=== PATIENT | female | born 1990 | race African-American/Black ===

== ENCOUNTER 2025-02-01 00:44 | Emergency (ER) | payer MEDICAID, SELFPAY ==
[2025-02-01] VITALS (11 sets, daily range): BP systolic 108–123; BP diastolic 57–83; PULSE 73–93; RESP 16; TEMP 36.3; O2SAT 98–100
--- NOTE | ~2025-02-01 | CT_ITS ---
CT of the Abdomen and Pelvis: Indication: Abdominal pain Technique: 2.5 mm axial scans were obtained through the abdomen and pelvis following intravenous adm inistration of 100 cc of Omnipaque 350. Dose reduction technique was used on this scan by utilizing a utomated exposure control and iterative reconstruction technique. The dose-length product (DLP) was 1 89.75 mGy-cm. Findings: Scans through the lung bases are unremarkable. The liver, pancreas, adrenals and kidneys are within normal limits. Cholecystectomy clips are present . Spleen is very small and somewhat hyperdense, suggestive of progressing autoinfarction. No evidence of aortic aneurysm. No lymphadenopathy. No bowel obstruction or bowel wall thickening. There is no evidence to suggest acute appendicitis. Images through the pelvis were performed. Urinary bladder unremarkable. No pelvic mass seen. No ascit es. 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 Correla te clinically. No acute abnormality evident. Reviewed, dictated and finalized at location . 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 Correlate clinically. No acute abnormality evident.
--- OUTSIDE RECORDS SUMMARY | 2025-02-01 00:47 | XMS_ITS | Clinical Summary ---
Author Organization [facility] Address [address] [place] [address] Care Team Providers Care Ocean Biologist Name Role Phone Found, No Pcp MD Primary Care Provider Unavailab le Source Comments You are receiving this document as you are listed as the primary care provider,follow-up provider, or the patient has been referred to you for consultation.This is in compliance with the Medicare andMedicaid EHR Incentive Program,which states Providers who transition their patient to another setting of careor provider of care or refers their patient to another provider of care shouldprovide summary care record for each transition of care or referral. [facility] Allergies Active Allergy Reactions Criticality Noted Date Comments Blood-Group Specific Substance Other, see comments 05/31/2023 Patient has sickle cell anemia, may cause delay in blood products Medications Multiple Vitamin (THERAVITE OR) Take 1 Tablet by mouth daily. Active hydrOXYzine HCl (ATARAX) 10 MG tablet Take 1 Tablet (10 mg) by mouth three times a day as needed. 3 Active DULoxetine (CYMBALTA) 60 MG capsule Take 1 Capsule (60 mg) by mouth daily. 3 Active folic acid 400 MCG tablet Take 1 Tablet (400 mcg) by mouth daily. Active Docusate Sodium (DSS) 100 MG Take 1 Capsule (100 mg) by mouth two times daily as needed. 3 Active acetaminophen 500 MG tablet Take 1-2 Tablets (500-1,000 mg) by mouth every 4 hours as needed. Active omeprazole (PRILOSEC) 20 MG capsule Take 1 Capsule (20 mg) by mouth daily as needed. Active naproxen (NAPROSYN) 500 MG tablet Take 1 Tablet (500 mg) by mouth two times daily as needed. Active meclizine (ANTIVERT) 12.5 MG tablet Take 1-2 Tablets (12.5-25 mg) by mouth 4 times daily as needed. 3 Active mirtazapine (REMERON SOLUTAB) 15 MG disintegrating tablet Take 1 Tablet (15 mg) by mouth daily at bedtime. 3 Active oxyCODONE HCl (ROXICODONE) 10 MG immediate release tablet Take 1 Tablet (10 mg) by mouth every 4 hours as needed. 3 Active polyethylene glycol 3350 (GLYCOLAX) 17 GM/SCOOP powder Take 1 Scoop by mouth once as needed. Active pregabalin (LYRICA) 25 MG capsule Take 1 Capsule (25 mg) by mouth two times a day. Active hydroxyurea (HYDREA) 500 MG capsuleIndications: sickle cell anemia Take 4 Capsules (2,000 mg) by mouth daily. Indications: sickle cell anemia Active potassium chloride (KLOR-CON M) 20 MEQ ER tablet Take 1 Tablet (20 mEq) by mouth two times a day. 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 Never true 05/31/20 23 Within the past 12 months, t he food you bought just didn't last and you didn't have money to get more. 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 Pulse 70 06/03/2023 7:58 AM RO[employer]ING HOUSE KEEPER Temperature 36.9 C (98.5 F) 06/03/2023 7:58 AM ROOMING HOUSE KEEPER Respiratory Rate 16 06/03/2023 7:58 AM ROOMING HOUSE KEEPER Oxygen Saturation 100% 06/03/2023 7:58 AM ROOMING HOUSE KEEPER Inhaled Oxygen Concentration - - Weight 50.8 kg (112 lb) 05/31/2023 5:55 PM ROOMING HOUSE KEEPER Height 157.5 cm (5' 2) 05/31/2023 5:55 PM ROOMING HOUSE KEEPER Body Mass Index 20.49 05/31/2023 5:55 PM ROOMING HOUSE KEEPER Plan of Treatment Health Maintenance Due Date Last Done Comments Cervical Cancer Screening Due 1991 Hep C Screening (Preventive Services) 1991 Tuberculosis Screening 1991 Hib Vaccine (1 of 1 - Risk 1-dose series) 12/28/1992 Meningococcal B Vaccine (1 of 5 - Increased Risk) 09/27/2001 HIV Screening (Preventive Services) 2007 Adult Preventive Visit 09/27/2009 HepB Vaccine (1) 09/27/2010 Pneumococcal Vaccine (1 of 2 - PCV) 09/27/2010 MCV4 Vaccine (2 - Risk 2-dose series) 2010 08/03/2010 HepA Vaccine (2 of 2 - 2-dose series) 03/03/2011 08/31/2010 DTaP/Tdap/Td Vaccine (6 - Tdap) 08/03/2020 08/03/2010, 08/03/2010, 01/07/1992, Additional history exists COVID-19 Vaccine ( season) 2024 03/02/2021, 02/01/2021 Influenza Vaccine (#1) 2025 , 05/25/2019, 08/01/2017, Additional history exists Zoster/Shingles Vaccine (1 of 2) 09/27/2041 IPV (Polio) Vaccine Completed 08/31/2010, 01/07/1992, 1991, Additional history exists HPV Vaccine Aged Out No longer eligi ble based on patient's age to complete this topic [facility] * Full Code (Latest Code Status on File) Date Activated Date Inactivated Comments 05/31/2023 6:40 PM 06/03/2023 12:54 PM Care Teams Ocean Biologist Relationship Specialty Start Date End Date Found, No Pcp, [id number] [place] [address] PCP - General 05/31/23
--- OUTSIDE RECORDS SUMMARY | 2025-02-01 00:47 | XMS_ITS | Clinical Summary ---
Author Organization [facility] [employer] [facility] [employer] [facility] Address [address] [place] [address] Care Team Providers Care Cargoman Name Role Phone Provider, No Attributed RESOURCE Unavailable Unavailable Lis Woody MD Primary Care Provider [phone] Allergies Active Allergy Reactions Criticality Noted Date Comments Blood-Group Specific Substance Other (Specify in Comments) High 03/14/2023 Patient has sickle cell anemia, may cause delay in blood products Patient with a history of a hematologic condition which may cause delays when ordering RBCs. (Sickle Cell - requires HgbS negative RBCs) Patient has sickle cell anemia, may cause delay in blood products Patient with a history of a hematologic condition which may cause delays when ordering RBCs. (Sickle Cell - requires HgbS negative RBCs) Medications Multiple Vitamins-Minera ls (MULTIVITAMIN THERAPEUTIC WITH MINERALS) TABS tablet Take 1 tablet by mouth 1 time per day Active ondansetron (ZOFRAN ODT) 8 mg dispersible tablet Take 1 tablet (8 mg) by mouth 06/12/20 21 Active hydrOXYzine HCl (ATARAX) 10 mg tablet Take 1 tablet (10 mg) by mouth 12/05/19 23 Active naproxen (NAPROSYN) 500 mg tablet Take 1 tablet (500 mg) by mouth 10/31/19 23 Active pregabalin (LYRICA) 25 mg capsule Take 1 capsule (25 mg) by mouth 2 times a day 10/01/19 22 Active methocarbamol (ROBAXIN) 500 mg tablet Take 500 mg by mouth 05/23/20 20 Active acetaminophen (TYLENOL) 500 mg tablet Take 2 tablets (1,000 mg) by mouth every 6 hours as needed Active DULoxetine (CYMBALTA) 30 mg capsule Take 1 capsule (30 mg) by mouth 1 time per day 04/20/20 24 Active folic acid 400 MCG tablet Take 1 tablet (400 mcg) by mouth 1 time per day 11/04/19 25 Active senna-docusate sodium (SENOKOT-S;DEBBIE COLACE) 8.6-50 MG tablet Take 1 tablet by mouth 2 times a day as needed for constipation 11/03/19 25 Active polyethylene glycol 3350 POWD Take 1 Scoop by mouth as needed (constipation) 11/03/19 25 Active lidocaine (ASPERCREME;LID OCARE) 4 % patch Apply 1 patch topically 1 time a day as needed for moderate pain or mild pain 11/03/19 25 Active hydroxyurea (HYDREA) 500 MG capsuleIndicati ons:Sickle cell disease with crisis (HCC) Take 4 capsules (2,000 mg) by mouth 1 time per day 120 capsule 12/08/19 25 Active oxyCODONE (OXY-IR) 30 MG tablet (immediate release) Take 1 tablet (30 mg) by mouth Every 4 hours as needed 01/07/20 25 Active oxyCODONE (OXY-IR) 15 mg tabletIndicatio ns:Sickle cell crisis (HCC) Take 1 tablet (15 mg) by mouth every 6 hours as needed for moderate pain 30 tablet 11/03/19 25 025 Discontinu ed( Order) potassium chloride (KLOR-CON M10) 10 MEQ CR tabletIndicatio ns:Sickle-cell disease with vaso-occlusive pain (HCC) Take 1 tablet (10 mEq) by mouth 1 time per day 3 tablet 12/07/19 25 025 Discontinu ed(Therapy completed) potassium chloride (KLOR-CON M20) 20 MEQ CR tabletIndicatio ns:Hypokalemia Take 1 tablet (20 mEq) by mouth 1 time per day for 3 days 3 tablet 01/18/20 25 025 Active Problems Problem Noted Date Diagnosed Date Sickle cell crisis 10/29/2024 Vaso-occlusive pain due to sickle cell disease 0 09/21/2024 Bacteremia 03/31/2024 Enterocolitis due to Clostri dium difficile, not specified as recurrent 03/31/2024 Patent foramen ovale (HHS-HCC) 03/31/2024 Sepsis due to Acinetobacter baumannii 03/29/2024 Blood in stool 03/09/2024 Opioid dependence 03/09/2024 Renal infarction 03/09/2024 Overview (01/20/2025): CT abdomen pelvis with iv contrast image on 02/07/2024 and 02/11/2024 Hypokalemia 01/18/2024 Infectious colitis 01/12/2024 Ulcerative colitis 01/11/2024 Bltxsm-[id number] C disease with crisis Abdominal pain 11/25/2023 Moderate episode of recurrent major depressive d isorder 09/05/2023 Nausea and vomiting 08/22/2023 Diarrhea 08/02/2023 Myalgia 08/02/2023 Nausea 05/15/2023 Vertigo 05/15/2023 Gastroesophageal reflux disease without esophagi tis 04/14/2023 Generalized anxiety disorder 04/14/2023 Mixed anxiety depressive disorder 04/14/2023 Hypokalemia 02/01/2023 Pain in right hip 02/01/2023 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 Inflammation of stomach and intestine 01/17/2023 Gallstones 12/19/2022 Tobacco dependence 12/19/2022 Cholelithiasis without obstruction 12/19/2022 Disease due to severe acute respiratory syndrome coronavirus 2 (SARS-CoV-2) 07/08/2022 Anemia 05/28/2021 Pain in back 05/27/2020 Acquired absence of other sp ecified parts of digestive tract 04/11/2018 Acute cystitis 02/01/2018 Sickle-cell anemia 05/15/2017 Debility 08/11/2015 ADHD (attention deficit hyperactivity disorder) 07/14/2014 Hemoglobin SS disease with crisis 07/14/2014 Attention-deficit hyperactiv ity disorder, predominantly hyperactive type 07/14/2014 Encounters Date Type Department Care Team Description 01/17/2025 7:33 AM CDT - 01/17/2025 12:48 PM CDT Emergency [facility] [address] [place] [address] Keyanna Loza, BENDING MACHINE SET UP OPERATOR-CD TECHNICIAN Discharge Disposition: Home, Self Care 01/14/2025 12:14 AM CDT - 01/14/2025 3:40 AM CDT Emergency [facility] [address] [place] [facility] [place] [address] Keyanna Loza, LAMBERTO-CD TECHNICIAN Discharge Disposition: Home, Self Care 12/29/2024 2:39 AM CDT - 12/29/2024 7:10 AM CDT Emergency [facility] [address] [place] [place] [address] Alyssa Casas, SEAN Discharge Disposition: Home, Self Care 12/09/2024 Results Follow-Up [facility] [address] [place] [place] [address] Anitha Keen MD C DIFF NAAT WITH REFLEX TO TOXIN A/B, CULTURE BACTERIAL, STOOL, SHIGA-LIKE TOXIN 12/07/2024 3:10 AM CDT - 12/07/2024 9:40 AM CDT Emergency [facility] [address] [place] [place] [address] Saurabh Dillon MD Oren, Tara J, PA-C Discharge Disposition: Home, Self Care 12/06/2024 5:43 AM CDT - 12/06/2024 10:54 AM CDT Emergency [facility] [address] [place] [address] Nikole Joaquin PA Discharge Disposition: Home, Self Care 12/03/2024 12:01 PM CDT - 12/03/2024 7:27 PM CDT Emergency [facility] [address] [place] [facility] [place] [address] Keyanna Loza, LAMBERTO-CD TECHNICIAN Discharge Disposition: Home, Self Care 11/06/2024 8:15 PM CDT - 11/06/2024 9:24 PM CDT Emergency [address] [address] Emergency, Department Wo, RESOURCE Ramon Kennedy PA Discharge Disposition: Home, Self Care 10/29/2024 5:03 PM CDT - 11/02/2024 1:55 PM CDT Hospital Encounter [facility] [address] [place] [address] Keyanna Loza, BENDING MACHINE SET UP OPERATOR-CD TECHNICIAN Chucky Rendon MD Jordan, Jessica M, Sickle cell crisis (HCC) Discharge Disposition: Home, Self Care from Last 3 Months Immunizations Immunization Administration Dates Next Due BCG 1991 DTP 01/07/1992,1991,1991 DTaP(Infanrix) 08/03/2010 HEP B, peds/adol 08/31/2010, 1,02/12/2010,01/12 HEP B,unspecified 08/31/2010, 0,02/12/2010,01/12,01/12/2010 Hep A,peds/adol 08/31/2010 INFLUENZA MULTIDOSE 6 MONTHS AND UP 05/13/2015 INFLUENZA SINGLE DOSE 0.5ML 6 MONTHS AND UP 05/25/2019,08/01/2017 INFLUENZA(FLUMIST)INTRANASAL VACCINE 2 TO 49 YEARS 05/10/2020 IPV 08/31/2010, 1,01/07/1992,01/06,1991,1991,1991 ,1991,1991,1991 Influenza Split, Historical 05/13/2015 Influenza Vaccine 06/12/2011 Influenza Vaccine,unspecified 06/12/2011 MMR 08/31/2010, 1,08/03/2010,08/03,06/30/1992 Measles 06/30/1992 Meningococcal MCV4P (Menactra) 08/03/2010 Pfizer COVID-19 Vaccine(Purp le Top) 12 Years and up 03/02/2021,02/01/2021 TDAP 04/30/2024,08/03/2010 Varicella 02/26/2013,08/31/2010 Yellow Fever Vaccine 06/30/1992 influenza split quadrivalent PF 05/25/2019,08/01 Social History Tobacco Use Types Packs/Day Years Used Date Smoking Tobacco: Former Cigarettes Tobacco Cessation:Counseling Given: Not Answered Alcohol Use Standard Drinks/Week Comments Yes 0 (1 standard drink = 0.6 oz pur e alcohol) [facility] Utilities Answer Date Recorded In the past 12 months has th e electric, gas, oil, or water company threatened to shut off services in your home? No 10/30/2024 AUDIT-C Answer Date Recorded Q1: How often do you have a drink containing alc ohol? 2-3 times a week 10/30/2024 Q2: How many drinks containi ng alcohol do you have on a typical day when you are drinking? 1 or 2 10/30/2024 Q3: How often do you have si x or more drinks on one occasion? Never 10/30/2024 Hunger Vital Sign Answer Date Recorded Within the past 12 months, y ou worried that your food would run out before you got the money to buy more. Never true 10/31/19 Within the past 12 months, t he food you bought just didn't last and you didn't have money to get more. Never true 10/30/2024 PRAPARE - Transportation Answer Date Re corded In the past 12 months, has l ack of transportation kept you from medical appointments or from getting medications? No 08/2024 In the past 12 months, has l ack of transportation kept you from meetings, work, or from getting things needed for daily living? No 10/30/2024 Housing Stability Vital Sign Answer Javad e Recorded In the last 12 months, was t here a time when you were not able to pay the mortgage or rent on time? No 10/30/2024 In the past 12 months, how m any times have you moved where you were living? 0 10/30/2024 At any time in the past 12 m [facility], were you homeless or living in a fdc (including now)? No 10/30/2024 Abuse/Neglect Answer Date Recorded Do you have current concerns about any past or present abuse and neglect? No 01/17/2025 Does the patient display any signs or symptoms of abuse or neglect? 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 Gender Identity Not on file Sexual Orientation Not on file Last Filed Vital Signs Vital Sign Reading Time Taken Comments Blood Pressure 109/68 01/17/2025 12:16 PM CDT Pulse 90 01/17/2025 12:16 PM CDT Temperature 36.7 C (98 F) 01/17/2025 12:16 PM CDT Respiratory Rate 14 01/17/2025 12:16 PM CDT Oxygen Saturation 100% 01/17/2025 12:16 PM CDT Inhaled Oxygen Concentration - - Weight 52.2 kg (115 lb) 01/17/2025 7:34 AM CDT Height 157.5 cm (5' 2) 01/17/2025 7:34 AM CDT Body Mass Index 21.03 01/17/2025 7:34 AM CDT Plan of Treatment Health Maintenance Due Date Last Done Comments Hepatitis C Screening 1991 HIB Vaccine (1 of 1 - Risk 1 -dose series) 12/28/1992 Men B Vaccine (1 of 4 - Incr eased Risk) 09/27/2001 HPV Vaccine (1 - 3-dose series) 09/27/2006 Pneumococcal Vaccine (0-5yr; and At-risk 6-49yr) (1 of 2 - PCV) 09/27/2010 MCV4 Vaccine (2 - Risk 2-dos e series) 2010 08/03/2010 Pap Smear 09/27/2012 Covid-19 Vaccine (3 - Pfizer risk series) 03/30/2021 03/02/2021, 02/01/2021 Influenza Vaccine (#1) 2025 0, 05/25/2019, 05/25/2019, Additional history exists TDAP/TD VACCINE (3 - Td or Tdap) 04/30/2034 04/30/20 24, 08/03/2010 Zoster Vaccine (1 of 2) 09/27/2041 02/26/2013, 08/31 Hepatitis B Vaccine Completed 08/31/2010, 08/31/2010, 08/31/2010, Additional history exists HIV One Time Screening Ages 15-65 Completed 024 Lipid Screening Completed 10/15/2024, 09/29, 09/24/2024, Additional history exists Procedures Procedure Name Priority Date/Time Associated Diagnosis Comments XRAY CHEST PA AND LATERAL STAT 01/17/2025 8:22 AM CDT EKG STAT 01/17/2025 8:09 AM CDT LAB ONLY-MANUAL DIFFERENTIAL STAT 01/17/2025 8:00 AM CDT TROPONIN I STAT 01/17/2025 8:00 AM CDT LAB ONLY-COMPLETE BLOOD COUNT WITH MANUAL DIFF STAT 01/17/2025 8:00 AM CDT COMPLETE BLOOD COUNT WITH MANUAL DIFF STAT 01/17/2025 8:00 AM CDT PROCALCITONIN STAT 01/17/2025 8:00 AM CDT MAGNESIUM STAT 01/17/2025 8:00 AM CDT LACTIC ACID REFLEX TO REPEAT STAT 01/17/2025 8:00 AM CDT COMPREHENSIVE METABOLIC PANEL STAT 01/17/2025 8:00 AM CDT C-REACTIVE PROTEIN (INFLAMMATION) STAT 01/17/2025 8:00 AM CDT HCG SCREEN URINE STAT 01/17/2025 7:35 AM CDT URINALYSIS REFLEX TO CULTURE (URINE DIP, REFLEX TO MICROSCOPIC, REFLEX TO CULTURE) STAT 01/17/2025 7:35 AM CDT LAB ONLY-MANUAL DIFFERENTIAL STAT 01/14/2025 12:45 AM CDT LIPASE STAT 01/14/2025 12:45 AM CDT PROCALCITONIN STAT 01/14/2025 12:45 AM CDT LAB ONLY-COMPLETE BLOOD COUNT WITH MANUAL DIFF STAT 01/14/2025 12:45 AM CDT COMPLETE BLOOD COUNT WITH MANUAL DIFF STAT 01/14/2025 12:45 AM CDT HCG SCREEN URINE STAT 01/14/2025 12:4 5 AM CDT URINALYSIS REFLEX TO CULTURE (URINE DIP, REFLEX TO MICROSCOPIC, REFLEX TO CULTURE) STAT 01/14/2025 12:45 AM CDT LACTIC ACID REFLEX TO REPEAT STAT 01/14/2025 12:45 AM CDT MAGNESIUM STAT 01/14/2025 12:45 AM CDT COMPREHENSIVE METABOLIC PANEL STAT 01/14/2025 12:45 AM CDT C-REACTIVE PROTEIN (INFLAMMATION) STAT 01/14/2025 12:45 AM CDT URINALYSIS REFLEX TO CULTURE (URINE DIP, REFLEX TO MICROSCOPIC, REFLEX TO CULTURE) STAT 12/29/2024 6:15 AM CDT LACTIC ACID STAT 12/29/2024 6:10 AM CDT MAGNESIUM STAT 12/29/2024 3:05 AM CDT LAB ONLY-MANUAL DIFFERENTIAL STAT 12/29/2024 3:05 AM CDT LIPASE STAT 12/29/2024 3:05 AM CDT HCG SCREEN STAT 12/29/2024 3:05 AM CDT LAB ONLY-COMPLETE BLOOD COUNT WITH MANUAL DIFF STAT 12/29/2024 3:05 AM CDT C-REACTIVE PROTEIN (INFLAMMATION) STAT 12/29/2024 3:05 AM CDT LACTIC ACID STAT 12/29/2024 3:05 AM CDT COMPREHENSIVE METABOLIC PANEL STAT 12/29/2024 3:05 AM CDT COMPLETE BLOOD COUNT WITH MANUAL DIFF STAT 12/29/2024 3:05 AM CDT CK STAT 12/07/2024 8:05 AM CDT LAB ONLY-MANUAL DIFFERENTIAL STAT 12/07/2024 8:05 AM CDT COMPREHENSIVE METABOLIC PANEL STAT 12/07/2024 8:05 AM CDT LAB ONLY-COMPLETE BLOOD COUNT WITH MANUAL DIFF STAT 12/07/2024 8:05 AM CDT COMPLETE BLOOD COUNT WITH MANUAL DIFF STAT 12/07/2024 8:05 AM CDT SHIGA-LIKE TOXIN STAT 12/06/2024 10:1 3 AM CDT CULTURE BACTERIAL, STOOL STAT 12/06/2024 10:13 AM CDT C DIFF NAAT WITH REFLEX TO TOXIN A/B STAT 12/06/2024 10:13 AM CDT CULTURE BACTERIAL, STOOL WITH SHIGA-LIKE TOXIN STAT 12/06/2024 10:13 AM CDT URINALYSIS REFLEX TO CULTURE (URINE DIP, REFLEX TO MICROSCOPIC, REFLEX TO CULTURE) STAT 12/06/2024 8:41 AM CDT LACTIC ACID STAT 12/06/2024 6:59 AM CDT C-REACTIVE PROTEIN (INFLAMMATION) STAT 12/06/2024 6:59 AM CDT LAB ONLY-MANUAL DIFFERENTIAL STAT 12/06/2024 6:59 AM CDT LAB ONLY-COMPLETE BLOOD COUNT WITH MANUAL DIFF STAT 12/06/2024 6:59 AM CDT MAGNESIUM STAT 12/06/2024 6:59 AM CDT COMPREHENSIVE METABOLIC PANEL STAT 12/06/2024 6:59 AM CDT COMPLETE BLOOD COUNT WITH MANUAL DIFF STAT 12/06/2024 6:59 AM CDT URINALYSIS REFLEX TO CULTURE (URINE DIP, REFLEX TO MICROSCOPIC, REFLEX TO CULTURE) STAT 12/03/2024 3:21 PM CDT LAB ONLY-COMPLETE BLOOD COUNT WITH DIFFERENTIAL STAT 12/03/2024 2:15 PM CDT RETIC COUNT STAT 12/03/2024 2:15 PM CDT TYPE AND SCREEN STAT 12/03/2024 2:15 PM CDT HCG SCREEN STAT 12/03/2024 2:15 PM CDT LIPASE STAT 12/03/2024 2:15 PM CDT PROCALCITONIN STAT 12/03/2024 2:15 PM CDT LACTIC ACID REFLEX TO REPEAT STAT 12/03/2024 2:15 PM CDT MAGNESIUM STAT 12/03/2024 2:15 PM CDT COMPREHENSIVE METABOLIC PANEL STAT 12/03/2024 2:15 PM CDT LAB ONLY-COMPLETE BLOOD COUNT WITH DIFFERENTIAL STAT 12/03/2024 2:15 PM CDT C-REACTIVE PROTEIN (INFLAMMATION) STAT 12/03/2024 2:15 PM CDT LAB ONLY-COMPLETE BLOOD COUNT WITH DIFFERENTIAL STAT 11/06/2024 8:41 PM CDT C-REACTIVE PROTEIN (INFLAMMATION) STAT 11/06/2024 8:41 PM CDT COMPREHENSIVE METABOLIC PANEL STAT 11/06/2024 8:41 PM CDT LAB ONLY-COMPLETE BLOOD COUNT WITH DIFFERENTIAL STAT 11/06/2024 8:41 PM CDT BASIC METABOLIC PANEL Routine 11/01/2024 7:00 AM CDT COMPLETE BLOOD COUNT NO DIFFERENTIAL Routine 11/01/2024 7:00 AM CDT from Last 3 Months Results * XRAY CHEST PA AND LATERAL (01/17/2025 8:22 AM CDT) Anatomical Region Laterality Modality Chest, Lung Computed Radiogr aphy 01/17/2025 10:5 3 AM CDT Narrative 01/17/2025 10:53 AM CDT EXAM: CR Chest, 2 View. CLINICAL HISTORY: Chest pain COMPARISON: DX - XRAY CHEST PORTABLE - 10/29/24 17:42 CDT FINDINGS: LUNGS: The lungs are clear. PLEURAL SPACES: No pneumothorax. No large pleural effusion. MEDIASTINUM: The cardiomediastinal silhoutte is within normal limits. BONES: Unremarkable IMPRESSION: No acute cardiopulmonary abnormality. /Central Procedure Note José Miguel Rodas MD - 01/17/2025 EXAM: CR Chest, 2 View. CLINICAL HISTORY: Chest pain COMPARISON: DX - XRAY CHEST PORTABLE - 10/29/24 17:42 CDT FINDINGS: LUNGS: The lungs are clear. PLEURAL SPACES: No pneumothorax. No large pleural effusion. MEDIASTINUM: The cardiomediastinal silhoutte is within normal limits. BONES: Unremarkable IMPRESSION: No acute cardiopulmonary abnormality. US/Central us Keyanna Loza [facility] RADIOLOGY DIAGNO STIC Final Result * EKG (01/17/2025 8:09 AM CDT) EKG WAVEFORM Sinus tachycardia Abnormal T, consider ischemia, diffuse leads Ventricular Rate: 106 BPM Atrial Rate: 106 BPM P-R Interval: 142 ms QRS Duration: 82 ms Q-T Interval: 352 ms QTc Calculation(Baz ett): 469 ms Calculated P [place]: 80 degrees Calculated R [place]: 45 degrees Calculated T [place]: -82 degrees [facility] 01/17/2025 8:09 AM CDT 01/31/2025 4:57 PM CDT Keyanna Loza [facility] EKG Final Result Performing Organization Address [facility]/ZIP Co de Phone Number [facility] [employer] * LACTIC ACID REFLEX TO REPEAT (01/17/2025 8:00 AM CDT) Pathologist [facility] Lactic Acid 2.0 0.5 - 2.2 mmol/L 01/17/2025 8:30 AM CDT [facility] Blood BLOOD SPECIMEN / Unknown 01/17/2025 8:00 AM CDT 01/17/2025 8:05 AM CDT Keyanna Loza [facility] LAB BLOOD Final Result [facility] [address] [place], [place] [id number] * (ABNORMAL) LAB ONLY-COMPLETE BLOOD COUNT WITH MANUAL DIFF (01/17/2025 8:00 AM CDT) WBC 9.5 4.0 - 11.0 K/uL 01/17/2025 8:30 AM CDT [facility] RBC 3.08(L) 3.80 - 5.30 M/uL 01/17/2025 8:30 AM CDT [facility] Hemoglobin 9.6(L) 11.5 - 15.8 g/dL 01/17/2025 8:30 AM [facility] Hematocrit 27.6(L) 35.0 - 45.0 % 01/17/2025 8:30 AM [facility] MCV 89.6 80.0 - 98.0 fL 01/17/2025 8:30 AM [facility] MCH 31.2 25.5 - 34.0 pg 01/17/2025 8:30 AM [facility] MCHC 34.8 31.5 - 36.5 g/dL 01/17/2025 8:30 AM [facility] RDW-CV 15.7(H) 11.5 - 15.5 % 01/17/2025 8:30 AM [facility] RDW-SD 52.0(H) 35.5 - 50.0 fl 01/17/2025 8:30 AM [facility] Platelet Count 388 140 - 400 K/uL 01/17/2025 8:30 AM [facility] MPV 8.6 8.5 - 12.0 fL 01/17/2025 8:30 AM [facility] Seg Neut Absolute 5.8 1.8 - 8.0 K/uL 01/17/2025 8:30 AM [facility] Lymphocytes Absolute 3.0 0.8 - 4.1 K/uL 01/17/2025 8:30 AM [facility] Monocytes Absolute 0.7 0.0 - 1.0 K/uL 01/17/2025 8:30 AM [facility] Eosinophils Absolute 0.1 0.0 - 0.7 K/uL 01/17/2025 8:30 AM [facility] Basophil Absolute 0.0 0.0 - 0.2 K/uL 01/17/2025 8:30 AM [facility] Immature Granulocyte Absolute <0.04 0.00 - 0.06 K/uL 01/17/2025 8:30 AM CDT [facility] Neutrophils Percent 60.4 % 01/17/2025 8:30 AM CDT [facility] Lymphocytes Percent 31.2 % 01/17/2025 8:30 AM CDT [facility] Monocytes Percent 7.3 % 01/17/2025 8:30 AM CDT [facility] Immature Granulocyte Percent 0.2 % 01/17/2025 8:30 AM CDT [facility] Eosinophils Percent 0.5 % 01/17/2025 8:30 AM CDT [facility] Basophil Percent 0.4 % 01/18/20 8:30 AM CDT [facility] Blood BLOOD SPECIMEN / Unknown 01/17/2025 8:00 AM CDT 01/17/2025 8:05 AM CDT us Keyanna Loza BENDING MACHINE SET UP OPERATOR-CD TECHNICIAN LAB ONLY ORDERS Final Result [facility] [address] [place] [address] * LAB ONLY-MANUAL DIFFERENTIAL (01/17/2025 8:00 AM CDT) Platelet Estimate Normal [employer] COVID-19 AG CARD 01/17/2025 8:30 AM CDT [facility] Platelet Morphology Normal [employer] COVID-19 AG CARD 01/17/2025 8:30 AM CDT [facility] RBC Morphology Abnormal [employer] COVID-19 AG CARD 01/17/2025 8:30 AM CDT [facility] Sickling Present [employer] COVID-19 AG CARD 01/17/2025 8:30 AM CDT [facility] Blood BLOOD SPECIMEN / Unknown 01/17/2025 8:00 AM CDT 01/17/2025 8:05 AM CDT Narrative [facility] - 01/17/2025 8:30 AM CDT 1-2 sickle cells per field Keyanna Loza BENDING MACHINE SET UP OPERATOR-CD TECHNICIAN LAB ONLY ORDERS Final Result Performing Organization Address City/[facility]/ZIP Co de Phone Number [facility] [address] [place] [address] * PROCALCITONIN (01/17/2025 8:00 AM CDT) Procalcitonin 0.04 <0.07 ng/mL 01/17/2025 8:44 AM CDT [facility] Blood BLOOD SPECIMEN / Unknown 01/17/2025 8:00 AM CDT 01/17/2025 8:05 AM CDT [facility] - 01/17/2025 8:44 AM CDT Suspected Lower Respiratory Tract Infection: 0.1-0.25: Low risk for bacterial infection; Antibiotics discouraged. > 0.25: Increased likelihood for bacterial infection; Antibiotics encouraged. Suspected Sepsis: 0.1-0.5: Low likelihood for sepsis; Antibiotics discouraged. > 0.5: Increased Likelihood for sepsis; Antibiotics encouraged. > 2.0: High risk of sepsis/septic shock; Antibiotics strongly encouraged. Decisions on antibiotic use should not be based solely on procalcitonin levels. If antibiotics are administered, repeat procalcitonin testing should be performed every 2-3 days to consider early antibiotic cessation. PCT is a dynamic biomarker and most useful when trends are analyzed over time in accompaniment with other clinical data. Keyanna Loza BENDING MACHINE SET UP OPERATOR-CD TECHNICIAN LAB BLOOD Final Result Performing Organization Address City/[facility]/ZIP Co de Phone Number [facility] [address] [address] * C-REACTIVE PROTEIN (INFLAMMATION) (01/17/2025 8:00 AM CDT) CRP 0.5 <=5.0 mg/L 01/17/2025 8:22 AM CDT [facility] Blood BLOOD SPECIMEN / Unknown 01/17/2025 8:00 AM CDT 01/17/2025 8:05 AM CDT Keyanna Loza BENDING MACHINE SET UP OPERATOR-[facility] LAB BLOOD Final Result [facility] [address] [id number] * TROPONIN I (01/17/2025 8:00 AM CDT) Troponin I <0.01 0.01 - 0.03 ng/mL 01/17/2025 8:32 AM CDT [facility] Blood BLOOD SPECIMEN / Unknown 01/17/2025 8:00 AM CDT 01/17/2025 8:05 AM CDT Keyanna Loza BENDING MACHINE SET UP OPERATOR-[facility] LAB BLOOD Final Result Performing Organization Address City/[facility]/ZIP Co de Phone Number [facility] [address], [place] [address] * MAGNESIUM (01/17/2025 8:00 AM CDT) Magnesium 2.1 1.6 - 2.6 mg/dL 01/17/2025 8:35 AM CDT [facility] Blood BLOOD SPECIMEN / Unknown 01/17/2025 8:00 AM CDT 01/17/2025 8:05 AM CDT Keyanna Loza BENDING MACHINE SET UP OPERATOR-[facility] BLOOD Final Result [facility] [address], [place] [address] * (ABNORMAL) COMPREHENSIVE METABOLIC PANEL (01/17/2025 8:00 AM CDT) Glucose 114(H) 70 - 99 mg/dL 01/17/2025 8:30 AM CDT [facility] BUN 6 6 - 22 mg/dL 01/17/2025 8:30 AM [facility] Creatinine 0.38(L) 0.55 - 1.02 mg/dL 01/17/2025 8:30 AM [facility] BUN/Creatinine Ratio 15.8 10.0 - 25.0 01/17/2025 8:30 AM [facility] Sodium 138 136 - 145 meq/L 01/17/2025 8:30 AM [facility] Potassium 2.7(L) 3.5 - 5.1 meq/L 01/17/2025 8:30 AM [facility] Chloride 108 98 - 109 meq/L 01/17/2025 8:30 AM [facility] CO2 19(L) 20 - 29 meq/L 01/17/2025 8:30 AM [facility] Anion Gap with K 14 6 - 20 meq/L 01/17/2025 8:30 AM [facility] Calcium 9.7 8.5 - 10.5 mg/dL 01/17/2025 8:30 AM [facility] Protein Total 8.4(H) 6.0 - 8.3 g/dL 01/17/2025 8:30 AM [facility] Albumin 5.1(H) 3.5 - 5.0 g/dL 01/17/2025 8:30 AM [facility] Alkaline Phosphatase 51 40 - 150 U/L 01/17/2025 8:30 AM [facility] AST - SGOT 26 <6 - 45 U/L 01/17/2025 8:30 AM [facility] ALT - SGPT 20 <6 - 55 U/L 01/17/2025 8:30 AM [facility] Bilirubin Total 1.6(H) 0.3 - 1.2 mg/dL 01/17/2025 8:30 AM [facility] Age 34 Years 01/17/2025 8:30 AM [facility] eGFRcr() >90 >=60 mL/min/1.7 3m2 01/17/2025 8:30 AM [facility] Blood BLOOD SPECIMEN / Unknown 01/17/2025 8:00 AM CDT 01/17/2025 8:05 AM CDT us Keyanna Loza BENDING MACHINE SET UP OPERATOR-CD TECHNICIAN LAB BLOOD Final Result [facility] [address] [place], [place] [address] * URINALYSIS REFLEX TO CULTURE (URINE DIP, REFLEX TO MICROSCOPIC, REFLEX TO CULTURE) (01/17/2025 7:35AM CDT) Color Urine Yellow Earline, Dark Yellow, Straw, Yellow, Colorless 01/17/2025 8:03 AM [facility] Clarity Urine Clear Clear 01/17/2025 8:03 AM [facility] Glucose Urine Negative Negative 01/17/2025 8:03 AM [facility] Bilirubin Urine Negative Negative 8:03 AM [facility] Ketones Urine Negative Negative, 5 mg/dL, 10 mg/dL 01/17/2025 8:03 AM [facility] Specific [place] 1.010 1.002 - 1.030 01/17/2025 8:03 AM [facility] Blood Urine Negative Negative 01/17/2025 8:03 AM [facility] PH Urine 6.5 5.0, 5.5, 6.0, 6.5, 7.0, 7.5, 8.0 01/17/2025 8:03 AM [facility] Protein Urine Negative Negative 01/17/2025 8:03 AM [facility] Urobilinogen < 2 mg/dL < 2 mg/dL 01/17/2025 8:03 AM [facility] Nitrite Negative Negative 01/17/2025 8:03 AM [facility] Leukocyte Esterase Urine Negative Negative 01/17/2025 8:03 AM CDT [facility] Urine URINE SPECIMEN OBTAINED BY CLEAN CATCH PROCEDURE / Unknown 01/17/2025 7:35 AM CDT 01/17/2025 7:58 AM CDT Narrative [facility] - 01/17/2025 8:03 AM CDT Microscopic exam not indicated Culture not performed - reflex criteria not met. Culture is only performed when the urine macroscopic color is reported as Bright [place], or when two or more of the following criteria are met: Positive Nitrite, Positive Leukocyte Esterase, WBC's >5 cells/hpf. Keyanna Loza BENDING MACHINE SET UP OPERATOR-CD TECHNICIAN LAB NON BLOOD Final Result [facility] [address] [place] [address] * HCG SCREEN URINE (01/17/2025 7:35 AM CDT) Urine Negative [facility] COVID-19 AG CARD 01/17/2025 8:09 AM CDT [facility] Urine URINE SPECIMEN OBTAINED BY CLEAN CATCH PROCEDURE / Unknown 01/17/2025 7:35 AM CDT 01/17/2025 7:58 AM CDT Keyanna Loza BENDING MACHINE SET UP OPERATOR-CD TECHNICIAN LAB NON BLOOD Final Result [facility] [address] [place], [place] [address] * LACTIC ACID REFLEX TO REPEAT (01/14/2025 12:45 AM CDT) Lactic Acid 1.5 0.5 - 2.2 mmol/L 01/14/2025 1:22 AM CDT [facility] Blood BLOOD SPECIMEN / Unknown IV start / Unknown 01/14/2025 12:45 AM CDT 01/14/2025 12:56 AM CDT us Keyanna Loza BENDING MACHINE SET UP OPERATOR-CD TECHNICIAN LAB BLOOD Final Result [facility] [address] [place], [place] [address] * (ABNORMAL) LAB ONLY-COMPLETE BLOOD COUNT WITH MANUAL DIFF (01/14/2025 12:45 AM CDT) WBC 7.3 4.0 - 11.0 K/uL 01/14/2025 1:24 AM T [facility] RBC 2.90(L) 3.80 - 5.30 M/uL 01/14/2025 1:24 AM [facility] Hemoglobin 9.2(L) 11.5 - 15.8 g/dL 01/14/2025 1:24 AM [facility] Hematocrit 26.2(L) 35.0 - 45.0 % 01/14/2025 1:24 AM [facility] MCV 90.3 80.0 - 98.0 fL 01/14/2025 1:24 AM [facility] MCH 31.7 25.5 - 34.0 pg 01/14/2025 1:24 AM [facility] MCHC 35.1 31.5 - 36.5 g/dL 01/14/2025 1:24 AM [facility] RDW-CV 16.4(H) 11.5 - 15.5 % 01/14/2025 1:24 AM [facility] RDW-SD 54.3(H) 35.5 - 50.0 fl 01/14/2025 1:24 AM [facility] Platelet Count 323 140 - 400 K/uL 01/14/2025 1:24 AM [facility] MPV 9.3 8.5 - 12.0 fL 01/14/2025 1:24 AM [facility] Blood BLOOD SPECIMEN / Unknown 01/14/2025 12:45 AM CDT 01/14/2025 12:56 AM CDT us Keyanna Loza BENDING MACHINE SET UP OPERATOR-CD TECHNICIAN LAB ONLY ORDERS Final Result [facility] [address], [place] [address] * (ABNORMAL) LAB ONLY-MANUAL DIFFERENTIAL (01/14/2025 12:45 AM CDT) Neutrophils Abs. (Segs and Bands) 4,015 /uL [facility] COVID-19 AG CARD 01/14/2025 1:24 AM CDT [facility] Seg Neut Absolute 4.0 1.8 - 8.0 K/uL [facility] COVID-19 AG CARD 01/14/2025 1:24 AM CDT [facility] Lymphocytes Absolute 2.7 0.8 - 4.1 K/uL [facility] COVID-19 AG CARD 01/14/2025 1:24 AM CDT [facility] Monocytes Absolute 0.5 0.0 - 1.0 K/uL [facility] COVID-19 AG CARD 01/14/2025 1:24 AM CDT [facility] Eosinophils Absolute 0.1 0.0 - 0.7 K/uL [facility] COVID-19 AG CARD 01/14/2025 1:24 AM CDT [facility] Basophil Absolute 0.0 0.0 - 0.2 K/uL [facility] COVID-19 AG CARD 01/14/2025 1:24 AM CDT [facility] Neutrophils Percent 55.0 % [facility] COVID-19 AG CARD 01/14/2025 1:24 AM CDT [facility] Lymphocytes Percent 37.0 % [facility] COVID-19 AG CARD 01/14/2025 1:24 AM CDT [facility] Monocytes Percent 7.0 % [facility] COVID-19 AG CARD 01/14/2025 1:24 AM CDT [facility] Eosinophils Percent 1.0 % [facility] COVID-19 AG CARD 01/14/2025 1:24 AM CDT [facility] Basophil Percent 0.0 % [facility] COVID-19 AG CARD 01/14/2025 1:24 AM CDT [facility] Platelet Estimate Normal [facility] COVID-19 AG CARD 01/14/2025 1:24 AM CDT [facility] Platelet Morphology Normal [facility] COVID-19 AG CARD 01/14/2025 1:24 AM CDT [facility] Nucleated RBC's 2(H) <=1 /100 WBC's [facility] COVID-19 AG CARD 01/14/2025 1:24 AM CDT [facility] RBC Morphology Abnormal [facility] COVID-19 AG CARD 01/14/2025 1:24 AM CDT [facility] Acanthocytes 1+ (up to 1% or 1-2 cells per HPF) [facility] COVID-19 AG CARD 01/14/2025 1:24 AM CDT [facility] [place] Bodies Present [facility] COVID-19 AG CARD 01/14/2025 1:24 AM CDT [facility] Rouleaux Present on LPF [facility] COVID-19 AG CARD 01/14/2025 1:24 AM CDT [facility] Sickling Present [facility] COVID-19 AG CARD 01/14/2025 1:24 AM CDT [facility] Target cells 1+ (5-15% or 10-30 cells per HPF) [facility] COVID-19 AG CARD 01/14/2025 1:24 AM CDT [facility] Blood BLOOD SPECIMEN / Unknown 01/14/2025 12:45 AM CDT 01/14/2025 12:56 AM CDT us Keyanna Loza BENDING MACHINE SET UP OPERATOR-CD TECHNICIAN LAB ONLY ORDERS Final Result [facility] [address] [place], [place] [address] * URINALYSIS REFLEX TO CULTURE (URINE DIP, REFLEX TO MICROSCOPIC, REFLEX TO CULTURE) (01/14/2025 12:45 AM T) Color Urine Yellow Earline, Dark Yellow, Straw, Yellow, Colorless 01/14/2025 1:01 AM [facility] Clarity Urine Clear Clear 01/14/2025 1:01 AM [facility] Glucose Urine Negative Negative 01/14/2025 1:01 AM [facility] Bilirubin Urine Negative Negative 1:01 AM [facility] Ketones Urine Negative Negative, 5 mg/dL, 10 mg/dL 01/14/2025 1:01 AM [facility] Specific [place] 1.010 1.002 - 1.030 01/14/2025 1:01 AM [facility] Blood Urine Negative Negative 01/14/2025 1:01 AM [facility] PH Urine 7.0 5.0, 5.5, 6.0, 6.5, 7.0, 7.5, 8.0 01/14/2025 1:01 AM [facility] Protein Urine Negative Negative 01/14/2025 1:01 AM [facility] Urobilinogen < 2 mg/dL < 2 mg/dL 01/14/2025 1:01 AM [facility] Nitrite Negative Negative 01/14/2025 1:01 AM [facility] Leukocyte Esterase Urine Negative Negative 01/14/2025 1:01 AM [facility] Urine URINE SPECIMEN OBTAINED BY CLEAN CATCH PROCEDURE / Unknown 01/14/2025 12:45 AM T 01/14/2025 12:56 AM [facility] - 01/14/2025 1:01 AM [facility] Microscopic exam not indicated Culture not performed - reflex criteria not met. Culture is only performed when the urine macroscopic color is reported as Bright [place], or when two or more of the following criteria are met: Positive Nitrite, Positive Leukocyte Esterase, WBC's >5 cells/hpf. Keyanna Darudar [facility] BENDING MACHINE SET UP OPERATOR-[facility] LAB NON BLOOD Final Result Performing Organization Address City/[facility]/ZIP Co de Phone Number [facility] [address] [place] [address] * (ABNORMAL) PROCALCITONIN (01/14/2025 12:45 AM CDT) Procalcitonin 0.10(H) <0.07 ng/mL 01/14/2025 1:38 AM CDT [facility] Blood BLOOD SPECIMEN / Unknown 01/14/2025 12:45 AM CDT 01/14/2025 12:56 AM CDT [facility] - 01/14/2025 1:38 AM CDT Suspected Lower Respiratory Tract Infection: 0.1-0.25: Low risk for bacterial infection; Antibiotics discouraged. > 0.25: Increased likelihood for bacterial infection; Antibiotics encouraged. Suspected Sepsis: 0.1-0.5: Low likelihood for sepsis; Antibiotics discouraged. > 0.5: Increased Likelihood for sepsis; Antibiotics encouraged. > 2.0: High risk of sepsis/septic shock; Antibiotics strongly encouraged. Decisions on antibiotic use should not be based solely on procalcitonin levels. If antibiotics are administered, repeat procalcitonin testing should be performed every 2-3 days to consider early antibiotic cessation. PCT is a dynamic biomarker and most useful when trends are analyzed over time in accompaniment with other clinical data. Keyanna Darudar [facility] BENDING MACHINE SET UP OPERATOR-[facility] LAB BLOOD Final Result Performing Organization Address City/[facility]/ZIP Co de Phone Number [facility] [address] [place] [address] * HCG SCREEN URINE (01/14/2025 12:45 AM CDT) Urine Negative [facility] COVID-19 AG CARD 01/14/2025 1:04 AM CDT [facility] Urine URINE SPECIMEN OBTAINED BY CLEAN CATCH PROCEDURE / Unknown 01/14/2025 12:45 AM CDT 01/14/2025 12:56 AM CDT Keyanna Loza APRN-[facility] LAB NON BLOOD Final Result [facility] [address], [place] [address] * C-REACTIVE PROTEIN (INFLAMMATION) (01/14/2025 12:45 AM CDT) CRP 2.4 <=5.0 mg/L 01/14/2025 1:22 AM CDT [facility] Blood BLOOD SPECIMEN / Unknown 01/14/2025 12:45 AM CDT 01/14/2025 12:56 AM CDT Keyanna Loza BENDING MACHINE SET UP OPERATOR-[facility] LAB BLOOD Final Result Performing Organization Address City/[facility]/ZIP Co de Phone Number [facility] [address], [place] [address] * MAGNESIUM (01/14/2025 12:45 AM CDT) Magnesium 2.1 1.6 - 2.6 mg/dL 01/14/2025 1:27 AM CDT [facility] Blood BLOOD SPECIMEN / Unknown 01/14/2025 12:45 AM CDT 01/14/2025 12:56 AM CDT Keyanna Loza BENDING MACHINE SET UP OPERATOR-[facility] LAB BLOOD Final Result [facility] [address], [place] [address] * LIPASE (01/14/2025 12:45 AM CDT) Lipase 22 8 - 78 U/L 01/14/2025 1:22 AM CDT [facility] Blood BLOOD SPECIMEN / Unknown 01/14/2025 12:45 AM CDT 01/14/2025 12:56 AM CDT us Keyanna Loza BENDING MACHINE SET UP OPERATOR-CD TECHNICIAN LAB BLOOD Final Result [facility] [address], [place] [address] * (ABNORMAL) COMPREHENSIVE METABOLIC PANEL (01/14/2025 12:45 AM CDT) Glucose 80 70 - 99 mg/dL 01/14/2025 1:22 AM [facility] BUN 5(L) 6 - 22 mg/dL 01/14/2025 1:22 AM [facility] Creatinine 0.44(L) 0.55 - 1.02 mg/dL 01/14/2025 1:22 AM [facility] BUN/Creatinine Ratio 11.4 10.0 - 25.0 01/14/2025 1:22 AM [facility] Sodium 137 136 - 145 meq/L 01/14/2025 1:22 AM [facility] Potassium 3.3(L) 3.5 - 5.1 meq/L 01/14/2025 1:22 AM [facility] Chloride 106 98 - 109 meq/L 01/14/2025 1:22 AM [facility] CO2 19(L) 20 - 29 meq/L 01/14/2025 1:22 AM [facility] Anion Gap with K 15 6 - 20 meq/L 01/14/2025 1:22 AM [facility] Calcium 9.4 8.5 - 10.5 mg/dL 01/14/2025 1:22 AM [facility] Protein Total 8.2 6.0 - 8.3 g/dL 01/14/2025 1:22 AM [facility] Albumin 4.9 3.5 - 5.0 g/dL 01/14/2025 1:22 AM [facility] Alkaline Phosphatase 50 40 - 150 U/L 01/14/2025 1:22 AM [facility] AST - SGOT 41 <6 - 45 U/L 01/14/2025 1:22 AM [facility] ALT - SGPT 30 <6 - 55 U/L 01/14/2025 1:22 AM [facility] Bilirubin Total 1.1 0.3 - 1.2 mg/dL 01/14/2025 1:22 AM [facility] Age 34 Years 01/14/2025 1:22 AM [facility] eGFRcr() >90 >=60 mL/min/1.7 3m2 01/14/2025 1:22 AM [facility] Blood BLOOD SPECIMEN / Unknown 01/14/2025 12:45 AM CDT 01/14/2025 12:56 AM CDT us Keyanna Loza BENDING MACHINE SET UP OPERATOR-CD TECHNICIAN LAB BLOOD Final Result [facility] [address] [place] [address] * (ABNORMAL) URINALYSIS REFLEX TO CULTURE (URINE DIP, REFLEX TO MICROSCOPIC, REFLEX TO CULTURE) (12/29/2024 6:15 AM CDT) Color Urine Yellow Earline, Dark Yellow, Straw, Yellow, Colorless 12/29/2024 6:35 AM [facility] Clarity Urine Clear Clear 12/29/2024 6:35 AM [facility] Glucose Urine Negative Negative 12/29/2024 6:35 AM [facility] Bilirubin Urine Negative Negative 6:35 AM [facility] Ketones Urine Negative Negative, 5 mg/dL, 10 mg/dL 12/29/2024 6:35 AM [facility] Specific [place] 1.010 1.002 - 1.030 12/29/2024 6:35 AM CDT [facility] Blood Urine Negative Negative 12/29/2024 6:35 AM CDT [facility] PH Urine 6.5 5.0, 5.5, 6.0, 6.5, 7.0, 7.5, 8.0 12/29/2024 6:35 AM CDT [facility] Protein Urine Negative Negative 12/29/2024 6:35 AM CDT [facility] Urobilinogen 2 mg/dL(A) < 2 mg/dL 12/29/2024 6:35 AM CDT [facility] Nitrite Negative Negative 12/29/2024 6:35 AM CDT [facility] Leukocyte Esterase Urine Negative Negative 12/29/2024 6:35 AM CDT [facility] Urine URINE SPECIMEN OBTAINED BY CLEAN CATCH PROCEDURE / Unknown 12/29/2024 6:15 AM CDT 12/29/2024 6:22 AM CDT Narrative [facility] - 12/29/2024 6:35 AM CDT Microscopic exam not indicated Culture not performed - reflex criteria not met. Culture is only performed when the urine macroscopic color is reported as Bright [place], or when two or more of the following criteria are met: Positive Nitrite, Positive Leukocyte Esterase, WBC's >5 cells/hpf. us Alyssa Casas CNP LAB NON BLOOD Final Resul t [facility] [address], [place] [id number] * LACTIC ACID (12/29/2024 6:10 AM CDT) Lactic Acid 1.3 0.5 - 2.2 mmol/L 12/29/2024 6:39 AM CDT [facility] Blood BLOOD SPECIMEN / Unknown 12/29/2024 6:10 AM CDT 12/29/2024 6:12 AM CDT us Alyssa Tamika Augusto CD TECHNICIAN LAB BLOOD Final Resul t [facility] [address], [place] [address] * (ABNORMAL) LAB ONLY-COMPLETE BLOOD COUNT WITH MANUAL DIFF (12/29/2024 3:05 AM T) WBC 6.9 4.0 - 11.0 K/uL 12/29/2024 3:43 AM [facility] RBC 3.07(L) 3.80 - 5.30 M/uL 12/29/2024 3:43 AM [facility] Hemoglobin 9.6(L) 11.5 - 15.8 g/dL 12/29/2024 3:43 AM [facility] Hematocrit 28.1(L) 35.0 - 45.0 % 12/29/2024 3:43 AM [facility] MCV 91.5 80.0 - 98.0 fL 12/29/2024 3:43 AM [facility] MCH 31.3 25.5 - 34.0 pg 12/29/2024 3:43 AM [facility] MCHC 34.2 31.5 - 36.5 g/dL 12/29/2024 3:43 AM [facility] RDW-CV 16.1(H) 11.5 - 15.5 % 12/29/2024 3:43 AM [facility] RDW-SD 53.1(H) 35.5 - 50.0 fl 12/29/2024 3:43 AM [facility] Platelet Count 417(H) 140 - 400 K/uL 12/29/2024 3:43 AM [facility] MPV 8.8 8.5 - 12.0 fL 12/29/2024 3:43 AM [facility] Seg Neut Absolute 4.3 1.8 - 8.0 K/uL 12/29/2024 3:43 AM [facility] Lymphocytes Absolute 1.9 0.8 - 4.1 K/uL 12/29/2024 3:43 AM CDT [facility] Monocytes Absolute 0.7 0.0 - 1.0 K/uL 12/29/2024 3:43 AM T [facility] Eosinophils Absolute 0.0 0.0 - 0.7 K/uL 12/29/2024 3:43 AM CDT [facility] Basophil Absolute 0.1 0.0 - 0.2 K/uL 12/29/2024 3:43 AM CDT [facility] Immature Granulocyte Absolute <0.04 0.00 - 0.06 K/uL 12/29/2024 3:43 AM T [facility] Neutrophils Percent 62.0 % 12/29/2024 3:43 AM T [facility] Lymphocytes Percent 27.0 % 12/29/2024 3:43 AM T [facility] Monocytes Percent 9.6 % 12/29/2024 3:43 AM T [facility] Immature Granulocyte Percent 0.3 % 12/29/2024 3:43 AM T [facility] Eosinophils Percent 0.4 % 12/29/2024 3:43 AM T [facility] Basophil Percent 0.7 % 12/30/19 3:43 AM [facility] Blood BLOOD SPECIMEN / Unknown 12/29/2024 3:05 AM CDT 12/29/2024 3:20 AM CDT us Alyssa Casas CD TECHNICIAN LAB ONLY ORDERS Final Resul t [facility] [address] [place] [address] * LAB ONLY-MANUAL DIFFERENTIAL (12/29/2024 3:05 AM CDT) Platelet Estimate Increased [facility] COVID-19 AG CARD 12/29/2024 3:43 AM CDT [facility] Platelet Morphology Normal [facility] COVID-19 AG CARD 12/29/2024 3:43 AM CDT [facility] RBC Morphology Abnormal [facility] COVID-19 AG CARD 12/29/2024 3:43 AM CDT [facility] Rouleaux Present on LPF [facility] COVID-19 AG CARD 12/29/2024 3:43 AM CDT [facility] Sickling Present [facility] COVID-19 AG CARD 12/29/2024 3:43 AM CDT [facility] Spherocytes 1+ (up to 1% or 1-2 cells per HPF) [facility] COVID-19 AG CARD 12/29/2024 3:43 AM CDT [facility] Blood BLOOD SPECIMEN / Unknown 12/29/2024 3:05 AM CDT 12/29/2024 3:20 AM CDT us Alyssa Casas CD TECHNICIAN LAB ONLY ORDERS Final Resul t Performing Organization Address City/[facility]/ZIP Co de Phone Number [facility] [address] [place] [facility] [address] * C-REACTIVE PROTEIN (INFLAMMATION) (12/29/2024 3:05 AM CDT) CRP 3.5 <=5.0 mg/L 12/29/2024 3:37 AM CDT [facility] Blood BLOOD SPECIMEN / Unknown 12/29/2024 3:05 AM CDT 12/29/2024 3:20 AM CDT us Alyssa Casas CD TECHNICIAN LAB BLOOD Final Resul t [facility] [address] [facility], [place] [id number] * HCG SCREEN (12/29/2024 3:05 AM CDT) Beta HCG Screen Negative [facility] COVID-19 AG CARD 12/29/2024 3:30 AM CDT [facility] Blood BLOOD SPECIMEN / Unknown 12/29/2024 3:05 AM CDT 12/29/2024 3:20 AM CDT us Alyssa Tamika Casas [facility] LAB BLOOD Final Resul t Performing Organization Address City/[facility]/ZIP Co de Phone Number [facility] [address] [place] [address] * MAGNESIUM (12/29/2024 3:05 AM CDT) Magnesium 2.0 1.6 - 2.6 mg/dL 12/29/2024 4:00 AM CDT [facility] Blood BLOOD SPECIMEN / Unknown 12/29/2024 3:05 AM CDT 12/29/2024 3:45 AM CDT us Alyssa Casas [facility] LAB BLOOD Final Resul t Performing Organization Address [facility]/ZIP Co de Phone Number [facility] [address] [place] [address] * LIPASE (12/29/2024 3:05 AM CDT) Lipase 23 8 - 78 U/L 12/29/2024 3:43 AM CDT [facility] Blood BLOOD SPECIMEN / Unknown 12/29/2024 3:05 AM CDT 12/29/2024 3:20 AM CDT us Alyssa Tamika Casas [facility] LAB BLOOD Final Resul t Performing Organization Address City/[facility]/ZIP Co de Phone Number [facility] [address] [place] [address] * (ABNORMAL) LACTIC ACID (12/29/2024 3:05 AM CDT) Lactic Acid 2.8(H) 0.5 - 2.2 mmol/L 12/29/2024 3:43 AM CDT [facility] Blood BLOOD SPECIMEN / Unknown 12/29/2024 3:05 AM CDT 12/29/2024 3:20 AM CDT Narrative [facility] - 12/29/2024 3:43 AM CDT Sepsis protocol threshold: >2.0 mmol/L us Alyssa Lundberg Augusto CD TECHNICIAN LAB BLOOD Final Resul t [facility] [address] [place], [place] [address] * (ABNORMAL) COMPREHENSIVE METABOLIC PANEL (12/29/2024 3:05 AM CDT) Glucose 126(H) 70 - 99 mg/dL 12/29/2024 3:43 AM [facility] BUN 5(L) 6 - 22 mg/dL 12/29/2024 3:43 AM [facility] Creatinine 0.38(L) 0.55 - 1.02 mg/dL 12/29/2024 3:43 AM [facility] BUN/Creatinine Ratio 13.2 10.0 - 25.0 12/29/2024 3:43 AM [facility] Sodium 139 136 - 145 meq/L 12/29/2024 3:43 AM [facility] Potassium 3.4(L) 3.5 - 5.1 meq/L 12/29/2024 3:43 AM [facility] Chloride 107 98 - 109 meq/L 12/29/2024 3:43 AM [facility] CO2 21 20 - 29 meq/L 12/29/2024 3:43 AM [facility] Anion Gap with K 14 6 - 20 meq/L 12/29/2024 3:43 AM [facility] Calcium 9.5 8.5 - 10.5 mg/dL 12/29/2024 3:43 AM [facility] Protein Total 8.4(H) 6.0 - 8.3 g/dL 12/29/2024 3:43 AM [facility] Albumin 4.9 3.5 - 5.0 g/dL 12/29/2024 3:43 AM [facility] Alkaline Phosphatase 55 40 - 150 U/L 12/29/2024 3:43 AM [facility] AST - SGOT 53(H) <6 - 45 U/L 12/29/2024 3:43 AM [facility] ALT - SGPT 43 <6 - 55 U/L 12/29/2024 3:43 AM [facility] Bilirubin Total 1.2 0.3 - 1.2 mg/dL 12/29/2024 3:43 AM [facility] Age 34 Years 12/29/2024 3:43 AM [facility] eGFRcr() >90 >=60 mL/min/1.7 3m2 12/29/2024 3:43 AM [facility] Blood BLOOD SPECIMEN / Unknown 12/29/2024 3:05 AM T 12/29/2024 3:20 AM CDT us Alyssa Casas CD TECHNICIAN LAB BLOOD Final Resul t [facility] [address] [place] [address] * (ABNORMAL) LAB ONLY-COMPLETE BLOOD COUNT WITH MANUAL DIFF (12/07/2024 8:05 AM T) WBC 8.1 4.0 - 11.0 K/uL 12/07/2024 8:36 AM [facility] RBC 2.59(L) 3.80 - 5.30 M/uL 12/07/2024 8:36 AM [facility] Hemoglobin 8.2(L) 11.5 - 15.8 g/dL 12/07/2024 8:36 AM [facility] Hematocrit 23.6(L) 35.0 - 45.0 % 12/07/2024 8:36 AM [facility] MCV 91.1 80.0 - 98.0 fL 12/07/2024 8:36 AM CDT [facility] MCH 31.7 25.5 - 34.0 pg 12/07/2024 8:36 AM CDT [facility] MCHC 34.7 31.5 - 36.5 g/dL 12/07/2024 8:36 AM T [facility] RDW-CV 16.2(H) 11.5 - 15.5 % 12/07/2024 8:36 AM T [facility] RDW-SD 54.5(H) 35.5 - 50.0 fl 12/07/2024 8:36 AM T [facility] Platelet Count 355 140 - 400 K/uL 12/07/2024 8:36 AM T [facility] MPV 8.7 8.5 - 12.0 fL 12/07/2024 8:36 AM T [facility] Blood BLOOD SPECIMEN / Unknown Venipuncture / Unknown 12/07/2024 8:05 AM CDT 12/07/2024 8:11 AM CDT us Meghan Borges PA-C LAB ONLY ORDERS Final Result [facility] [address] [place] [address] * LAB ONLY-MANUAL DIFFERENTIAL (12/07/2024 8:05 AM CDT) Neutrophils Abs. (Segs and Bands) 4,293 /uL [facility] COVID-19 AG CARD 12/07/2024 8:36 AM CDT [facility] Seg Neut Absolute 4.3 1.8 - 8.0 K/uL [facility] COVID-19 AG CARD 12/07/2024 8:36 AM CDT [facility] Lymphocytes Absolute 3.2 0.8 - 4.1 K/uL [facility] COVID-19 AG CARD 12/07/2024 8:36 AM CDT [facility] Monocytes Absolute 0.6 0.0 - 1.0 K/uL [facility] COVID-19 AG CARD 12/07/2024 8:36 AM T [facility] Eosinophils Absolute 0.1 0.0 - 0.7 K/uL [facility] COVID-19 AG CARD 12/07/2024 8:36 AM T [facility] Neutrophils Percent 53.0 % [facility] COVID-19 AG CARD 12/07/2024 8:36 AM T [facility] Lymphocytes Percent 39.0 % [facility] COVID-19 AG CARD 12/07/2024 8:36 AM T [facility] Monocytes Percent 7.0 % [facility] COVID-19 AG CARD 12/07/2024 8:36 AM T [facility] Eosinophils Percent 1.0 % [facility] COVID-19 AG CARD 12/07/2024 8:36 AM T [facility] Platelet Estimate Normal [facility] COVID-19 AG CARD 12/07/2024 8:36 AM T [facility] Platelet Morphology Normal [facility] COVID-19 AG CARD 12/07/2024 8:36 AM T [facility] RBC Morphology Abnormal [facility] COVID-19 AG CARD 12/07/2024 8:36 AM T [facility] Sickling Present [facility] COVID-19 AG CARD 12/07/2024 8:36 AM T [facility] Target cells 1+ (5-15% or 10-30 cells per HPF) [facility] COVID-19 AG CARD 12/07/2024 8:36 AM T [facility] Blood BLOOD SPECIMEN / Unknown Venipuncture / Unknown 12/07/2024 8:05 AM CDT 12/07/2024 8:11 AM CDT us Meghan Borges PA-C LAB ONLY ORDERS Final Result [facility] [address] [place] [address] * (ABNORMAL) CK (12/07/2024 8:05 AM CDT) CK 24(L) 29 - 168 U/L 12/07/2024 9:03 AM [facility] Blood BLOOD SPECIMEN / Unknown Venipuncture / Unknown 12/07/2024 8:05 AM CDT 12/07/2024 8:31 AM CDT us Saurabh Dillon MD LAB BLOOD Final Result [facility] [address] [place], [place] [address] * (ABNORMAL) COMPREHENSIVE METABOLIC PANEL (12/07/2024 8:05 AM CDT) Pathologist [facility] Glucose 83 70 - 99 mg/dL 12/07/2024 8:31 AM [facility] BUN 6 6 - 22 mg/dL 12/07/2024 8:31 AM [facility] Creatinine 0.42(L) 0.55 - 1.02 mg/dL 12/07/2024 8:31 AM [facility] BUN/Creatinine Ratio 14.3 10.0 - 25.0 12/07/2024 8:31 AM [facility] Sodium 139 136 - 145 meq/L 12/07/2024 8:31 AM [facility] Potassium 3.3(L) 3.5 - 5.1 meq/L 12/07/2024 8:31 AM [facility] Chloride 110(H) 98 - 109 meq/L 12/07/2024 8:31 AM [facility] CO2 22 20 - 29 meq/L 12/07/2024 8:31 AM [facility] Anion Gap with K 10 6 - 20 meq/L 12/07/2024 8:31 AM [facility] Calcium 8.6 8.5 - 10.5 mg/dL 12/07/2024 8:31 AM [facility] Protein Total 6.7 6.0 - 8.3 g/dL 12/07/2024 8:31 AM [facility] Albumin 3.9 3.5 - 5.0 g/dL 12/07/2024 8:31 AM [facility] Alkaline Phosphatase 48 40 - 150 U/L 12/07/2024 8:31 AM [facility] AST - SGOT 17 <6 - 45 U/L 12/07/2024 8:31 AM [facility] ALT - SGPT 10 <6 - 55 U/L 12/07/2024 8:31 AM [facility] Bilirubin Total 0.7 0.3 - 1.2 mg/dL 12/07/2024 8:31 AM [facility] Corrected Calcium 8.7 8.5 - 10.5 mg/dL 12/07/2024 8:31 AM [facility] Age 34 Years 12/07/2024 8:31 AM [facility] eGFRcr() >90 >=60 mL/min/1.7 3m2 12/07/2024 8:31 AM [facility] Blood BLOOD SPECIMEN / Unknown Venipuncture / Unknown 12/07/2024 8:05 AM CDT 12/07/2024 8:12 AM CDT us Meghan Borges PA-C LAB BLOOD Final Result [facility] [address] [place] [address] * C DIFF NAAT WITH REFLEX TO TOXIN A/B (12/06/2024 10:13 AM CDT) C diff tcdB Gene NAAT Not Detected Not Detected [employer] T DX SYSTEM_C EPHEID_M NI 12/06/2024 5:46 PM [facility] Comment:C. difficile toxin g shawna is absent or below the limit of detection (NAAT negative). No further testing to follow. Repeat testing is not recommended within 7 days. 027/NAP1/BI Presumptive Negative Presumptive Negative [employer] T DX SYSTEM_C EPHEID_M NI 12/06/2024 5:46 PM CDT [facility] Feces FECES / Unknown 12/06/2024 1 0:13 AM CDT 12/06/2024 4:58 PM CDT Narrative [facility] - 12/06/2024 5:46 PM CDT Detection of 027/NAP1/BI strains of C. difficile is presumptive and solely for epidemiological purposes. It is not intended to guide or monitor treatment for C. difficile infections. Treatment remains the same. This test was performed by polymerase chain reaction (PCR) on the GeneXpert instrument. Nikole JHA LAB NON BLOOD Final Result Performing Organization Address [facility] Co de Phone Number [facility] [address] [place] [address] * CULTURE BACTERIAL, STOOL (12/06/2024 10:13 AM CDT) [facility] Culture Result No enteric pathogens isolated. 12/11/2024 12:52 AM CDT [facility] Feces FECES / Unknown 12/06/2024 1 0:13 AM CDT 12/06/2024 4:58 PM CDT Narrative [facility] - 12/11/2024 12:52 AM CDT Negative for Aeromonas, Campylobacter, E. coli O157, Plesiomonas, Salmonella, Shigella, and Vibrio The stool culture methodology applied does not screen for non-O157 Shiga-toxin producing E. coli (STEC) strains that are also known to be important causes of diarrheal illness. If not already ordered and clinically indicated consider additional STEC testing, Shiga-like Toxin EIA can be ordered in addition to routine stool culture. Nikole JHA LAB MICROBIOLOGY Final Result Performing Organization Address [facility] Co de Phone Number [facility] [address] [place] [phone] * SHIGA-LIKE TOXIN (12/06/2024 10:13 AM CDT) Pathologist [facility] Shigatoxin 1 Not Detected Not Detected 12/10/19 11:11 AM CDT [facility] Shigatoxin 2 Not Detected Not Detected 12/10/19 11:11 AM CDT [facility] Feces FECES / Unknown 12/06/2024 1 0:13 AM CDT 12/06/2024 4:58 PM CDT Nikole JHA LAB NON BLOOD Final Result Performing Organization Address [facility] Co de Phone Number [facility] [address] [place] [phone] * URINALYSIS REFLEX TO CULTURE (URINE DIP, REFLEX TO MICROSCOPIC, REFLEX TO CULTURE) (12/06/2024 8:41AM CDT) Pathologist [facility] Color Urine Yellow Earline, Dark Yellow, Straw, Yellow, Colorless 12/06/2024 8:44 AM [facility] Clarity Urine Clear Clear 12/06/2024 8:44 AM [facility] Glucose Urine Negative Negative 12/06/2024 8:44 AM T [facility] Bilirubin Urine Negative Negative 8:44 AM T [facility] Ketones Urine Negative Negative, 5 mg/dL, 10 mg/dL 12/06/2024 8:44 AM [facility] Specific [place] 1.015 1.002 - 1.030 12/06/2024 8:44 AM [facility] Blood Urine Negative Negative 12/06/2024 8:44 AM [facility] PH Urine 7.0 5.0, 5.5, 6.0, 6.5, 7.0, 7.5, 8.0 12/06/2024 8:44 AM T [facility] Protein Urine Negative Negative 12/06/2024 8:44 AM T [facility] Urobilinogen < 2 mg/dL < 2 mg/dL 12/06/2024 8:44 AM T [facility] Nitrite Negative Negative 12/06/2024 8:44 AM [facility] Leukocyte Esterase Urine Negative Negative 12/06/2024 8:44 AM [facility] Urine URINE SPECIMEN OBTAINED BY CLEAN CATCH PROCEDURE / Unknown 12/06/2024 8:41 AM CDT 12/06/2024 8:41 AM CDT [facility] - 12/06/2024 8:44 AM CDT Microscopic exam not indicated Culture not performed - reflex criteria not met. Culture is only performed when the urine macroscopic color is reported as Bright [place], or when two or more of the following criteria are met: Positive Nitrite, Positive Leukocyte Esterase, WBC's >5 cells/hpf. us Nikole JHA LAB NON BLOOD Final Result [facility] [address] [place], [place] [address] * (ABNORMAL) LAB ONLY-COMPLETE BLOOD COUNT WITH MANUAL DIFF (12/06/2024 6:59 AM CDT) WBC 5.4 4.0 - 11.0 K/uL 12/06/2024 7:21 AM [facility] RBC 2.79(L) 3.80 - 5.30 M/uL 12/06/2024 7:21 AM [facility] Hemoglobin 8.8(L) 11.5 - 15.8 g/dL 12/06/2024 7:21 AM [facility] Hematocrit 25.5(L) 35.0 - 45.0 % 12/06/2024 7:21 AM [facility] MCV 91.4 80.0 - 98.0 fL 12/06/2024 7:21 AM CDT [facility] MCH 31.5 25.5 - 34.0 pg 12/06/2024 7:21 AM CDT [facility] MCHC 34.5 31.5 - 36.5 g/dL 12/06/2024 7:21 AM T [facility] RDW-CV 16.6(H) 11.5 - 15.5 % 12/06/2024 7:21 AM T [facility] RDW-SD 54.7(H) 35.5 - 50.0 fl 12/06/2024 7:21 AM T [facility] Platelet Count 362 140 - 400 K/uL 12/06/2024 7:21 AM [facility] MPV 8.4(L) 8.5 - 12.0 fL 12/06/2024 7:21 AM T [facility] Blood BLOOD SPECIMEN / Unknown Venipuncture / Unknown 12/06/2024 6:59 AM CDT 12/06/2024 6:59 AM CDT us Nikole JHA LAB ONLY ORDERS Final Result [facility] [address] [place] [address] * LAB ONLY-MANUAL DIFFERENTIAL (12/06/2024 6:59 AM CDT) Neutrophils Abs. (Segs and Bands) 2,592 /uL [facility] COVID-19 AG CARD 12/06/2024 7:21 AM CDT [facility] Seg Neut Absolute 2.6 1.8 - 8.0 K/uL [facility] COVID-19 AG CARD 12/06/2024 7:21 AM CDT [facility] Lymphocytes Absolute 2.4 0.8 - 4.1 K/uL [facility] COVID-19 AG CARD 12/06/2024 7:21 AM CDT [facility] Monocytes Absolute 0.4 0.0 - 1.0 K/uL [facility] COVID-19 AG CARD 12/06/2024 7:21 AM T [facility] Neutrophils Percent 48.0 % [facility] 12/06/2024 7:21 AM T [facility] Lymphocytes Percent 44.0 % [facility] AG CARD 12/06/2024 7:21 AM T [facility] Monocytes Percent 8.0 % [facility] AG CARD 12/06/2024 7:21 AM T [facility] Platelet Estimate Normal [facility]-19 AG CARD 12/06/2024 7:21 AM T [facility] Platelet Morphology Normal [facility] 12/06/2024 7:21 AM T [facility] Spherocytes 1+ (up to 1% or 1-2 cells per HPF) [facility] AG C[facility] 12/06/2024 7:21 AM T [facility] Target cells 1+ (5-15% or 10-30 cells per HPF) [facility] 12/06/2024 7:21 AM T [facility] Blood BLOOD SPECIMEN / Unknown Venipuncture / Unknown 12/06/2024 6:59 AM CDT 12/06/2024 6:59 AM CDT us Nikole JHA LAB ONLY ORDERS Final Result [facility] [address] [place] [phone] * C-REACTIVE PROTEIN (INFLAMMATION) (12/06/2024 6:59 AM CDT) CRP 0.7 <=5.0 mg/L 12/06/2024 7:48 AM T [facility] Blood BLOOD SPECIMEN / Unknown 12/06/2024 6:59 AM CDT 12/06/2024 7:31 AM CDT us Alyssa Casas CD TECHNICIAN LAB BLOOD Final Resul t [facility] [address] [place], [place] [address] * MAGNESIUM (12/06/2024 6:59 AM CDT) Magnesium 1.8 1.6 - 2.6 mg/dL 12/06/2024 7:17 AM CDT [facility] Blood BLOOD SPECIMEN / Unknown 12/06/2024 6:59 AM CDT 12/06/2024 6:59 AM CDT us Nikole Joaquin PA LAB BLOOD Final Result Performing Organization Address [facility]/ZIP Co de Phone Number [facility] [address] [place] [phone] * LACTIC ACID (12/06/2024 6:59 AM CDT) Lactic Acid 1.8 0.5 - 2.2 mmol/L 12/06/2024 8:03 AM CDT [facility] Blood BLOOD SPECIMEN / Unknown 12/06/2024 6:59 AM CDT 12/06/2024 7:48 AM CDT us Alyssa Casas CD TECHNICIAN LAB BLOOD Final Resul t [facility] [address] [place] [address] * (ABNORMAL) COMPREHENSIVE METABOLIC PANEL (12/06/2024 6:59 AM CDT) Glucose 84 70 - 99 mg/dL 12/06/2024 7:21 AM CDT [facility] BUN 6 6 - 22 mg/dL 12/06/2024 7:21 AM CDT [facility] Creatinine 0.41(L) 0.55 - 1.02 mg/dL 12/06/2024 7:21 AM [facility] BUN/Creatinine Ratio 14.6 10.0 - 25.0 12/06/2024 7:21 AM [facility] Sodium 140 136 - 145 meq/L 12/06/2024 7:21 AM [facility] Potassium 3.4(L) 3.5 - 5.1 meq/L 12/06/2024 7:21 AM [facility] Chloride 108 98 - 109 meq/L 12/06/2024 7:21 AM [facility] CO2 22 20 - 29 meq/L 12/06/2024 7:21 AM [facility] Anion Gap with K 13 6 - 20 meq/L 12/06/2024 7:21 AM [facility] Calcium 9.0 8.5 - 10.5 mg/dL 12/06/2024 7:21 AM [facility] Protein Total 7.6 6.0 - 8.3 g/dL 12/06/2024 7:21 AM [facility] Albumin 4.5 3.5 - 5.0 g/dL 12/06/2024 7:21 AM [facility] Alkaline Phosphatase 43 40 - 150 U/L 12/06/2024 7:21 AM [facility] AST - SGOT 21 <6 - 45 U/L 12/06/2024 7:21 AM [facility] ALT - SGPT 12 <6 - 55 U/L 12/06/2024 7:21 AM [facility] Bilirubin Total 0.9 0.3 - 1.2 mg/dL 12/06/2024 7:21 AM [facility] Age 34 Years 12/06/2024 7:21 AM [facility] eGFRcr() >90 >=60 mL/min/1.73 m2 12/06/2024 7:21 AM [facility] Fasting Unknown Yes, No, Unknown 12/06/2024 7:21 AM T [facility] Blood BLOOD SPECIMEN / Unknown 12/06/2024 6:59 AM CDT 12/06/2024 6:59 AM CDT us Nikole JHA LAB BLOOD Final Result [facility] [address] [place], [place] [address] * URINALYSIS REFLEX TO CULTURE (URINE DIP, REFLEX TO MICROSCOPIC, REFLEX TO CULTURE) (12/03/2024 3:21PM CDT) Color Urine Yellow Earline, Dark Yellow, Straw, Yellow, Colorless 12/03/2024 3:30 PM T [facility] Clarity Urine Clear Clear 12/03/2024 3:30 PM [facility] Glucose Urine Negative Negative 12/03/2024 3:30 PM T [facility] Bilirubin Urine Negative Negative 3:30 PM T [facility] Ketones Urine Negative Negative, 5 mg/dL, 10 mg/dL 12/03/2024 3:30 PM [facility] Specific [place] 1.010 1.002 - 1.030 12/03/2024 3:30 PM T [facility] Blood Urine Negative Negative 12/03/2024 3:30 PM T [facility] PH Urine 7.0 5.0, 5.5, 6.0, 6.5, 7.0, 7.5, 8.0 12/03/2024 3:30 PM [facility] Protein Urine Negative Negative 12/03/2024 3:30 PM T [facility] Urobilinogen < 2 mg/dL < 2 mg/dL 12/03/2024 3:30 PM T [facility] Nitrite Negative Negative 12/03/2024 3:30 PM T [facility] Leukocyte Esterase Urine Negative Negative 12/03/2024 3:30 PM CDT [facility] Urine URINE SPECIMEN OBTAINED BY CLEAN CATCH PROCEDURE / Unknown 12/03/2024 3:21 PM CDT 12/03/2024 3:26 PM CDT Narrative [facility] - 12/03/2024 3:30 PM CDT Microscopic exam not indicated Culture not performed - reflex criteria not met. Culture is only performed when the urine macroscopic color is reported as Bright [place], or when two or more of the following criteria are met: Positive Nitrite, Positive Leukocyte Esterase, WBC's >5 cells/hpf. Keyanna Loza BENDING MACHINE SET UP OPERATOR-[facility] LAB NON BLOOD Final Result [facility] [address] [place], [place] [id number] * LACTIC ACID REFLEX TO REPEAT (12/03/2024 2:15 PM CDT) Lactic Acid 1.4 0.5 - 2.2 mmol/L 12/03/2024 2:49 PM CDT [facility] Blood BLOOD SPECIMEN / Unknown 12/03/2024 2:15 PM CDT 12/03/2024 2:26 PM CDT Keyanna Loza BENDING MACHINE SET UP OPERATOR-[facility] LAB BLOOD Final Result [facility] [address] [place], [place] [id number] * (ABNORMAL) LAB ONLY-COMPLETE BLOOD COUNT WITH DIFFERENTIAL (12/03/2024 2:15 PM CDT) WBC 6.6 4.0 - 11.0 K/uL 12/03/2024 2:31 PM CDT [facility] RBC 2.74(L) 3.80 - 5.30 M/uL 12/03/2024 2:31 PM CDT [facility] Hemoglobin 8.6(L) 11.5 - 15.8 g/dL 12/03/2024 2:31 PM [facility] Hematocrit 25.4(L) 35.0 - 45.0 % 12/03/2024 2:31 PM [facility] MCV 92.7 80.0 - 98.0 fL 12/03/2024 2:31 PM [facility] MCH 31.4 25.5 - 34.0 pg 12/03/2024 2:31 PM [facility] MCHC 33.9 31.5 - 36.5 g/dL 12/03/2024 2:31 PM [facility] RDW-CV 16.9(H) 11.5 - 15.5 % 12/03/2024 2:31 PM [facility] RDW-SD 57.1(H) 35.5 - 50.0 fl 12/03/2024 2:31 PM [facility] Platelet Count 460(H) 140 - 400 K/uL 12/03/2024 2:31 PM [facility] MPV 8.6 8.5 - 12.0 fL 12/03/2024 2:31 PM [facility] Seg Neut Absolute 3.4 1.8 - 8.0 K/uL 12/03/2024 2:31 PM [facility] Lymphocytes Absolute 2.3 0.8 - 4.1 K/uL 12/03/2024 2:31 PM [facility] Monocytes Absolute 0.8 0.0 - 1.0 K/uL 12/03/2024 2:31 PM [facility] Eosinophils Absolute 0.0 0.0 - 0.7 K/uL 12/03/2024 2:31 PM [facility] Basophil Absolute 0.0 0.0 - 0.2 K/uL 12/03/2024 2:31 PM [facility] Immature Granulocyte Absolute <0.04 0.00 - 0.06 K/uL 12/03/2024 2:31 PM [facility] Neutrophils Abs. (Segs and Bands) 3,400 /uL 12/03/2024 2:31 PM CDT [facility] Neutrophils Percent 51.8 % 12/03/2024 2:31 PM CDT [facility] Lymphocytes Percent 34.5 % 12/03/2024 2:31 PM CDT [facility] Monocytes Percent 12.3 % 12/03/2024 2:31 PM CDT [facility] Immature Granulocyte Percent 0.2 % 12/03/2024 2:31 PM CDT [facility] Eosinophils Percent 0.6 % 12/03/2024 2:31 PM CDT [facility] Basophil Percent 0.6 % 12/04/19 2:31 PM CDT [facility] Blood BLOOD SPECIMEN / Unknown 12/03/2024 2:15 PM CDT 12/03/2024 2:26 PM CDT us Keyanna Loza BENDING MACHINE SET UP OPERATOR-CD TECHNICIAN LAB ONLY ORDERS Final Result [facility] [address] [place] [address] * PROCALCITONIN (12/03/2024 2:15 PM CDT) Procalcitonin 0.03 <0.07 ng/mL 12/03/2024 3:14 PM CDT [facility] Blood BLOOD SPECIMEN / Unknown 12/03/2024 2:15 PM CDT 12/03/2024 2:26 PM CDT Narrative [facility] - 12/03/2024 3:14 PM CDT Suspected Lower Respiratory Tract Infection: 0.1-0.25: Low risk for bacterial infection; Antibiotics discouraged. > 0.25: Increased likelihood for bacterial infection; Antibiotics encouraged. Suspected Sepsis: 0.1-0.5: Low likelihood for sepsis; Antibiotics discouraged. > 0.5: Increased Likelihood for sepsis; Antibiotics encouraged. > 2.0: High risk of sepsis/septic shock; Antibiotics strongly encouraged. Decisions on antibiotic use should not be based solely on procalcitonin levels. If antibiotics are administered, repeat procalcitonin testing should be performed every 2-3 days to consider early antibiotic cessation. PCT is a dynamic biomarker and most useful when trends are analyzed over time in accompaniment with other clinical data. Keyanna Loza BENDING MACHINE SET UP [facility] LAB BLOOD Final Result Performing Organization Address [facility]/ZIP Co de Phone Number [facility] [address] [place], [place] [address] * TYPE AND SCREEN (12/03/2024 2:15 PM CDT) Pathologist [facility] ABO Type B [facility] COVID-19 AG CARD 12/03/2024 3:08 PM CDT [facility] Rh Type Rh Positive [facility] COVID-19 AG CARD 12/03/2024 3:08 PM CDT [facility] Antibody Screen Negative Negative [facility] COVID-19 AG CARD 12/03/2024 3:08 PM CDT [facility] Expiration Date 12/06/2024 15:10 [facility] COVID-19 AG CARD 12/03/2024 3:08 PM CDT [facility] Blood BLOOD SPECIMEN / Unknown 12/03/2024 2:15 PM CDT 12/03/2024 2:26 PM CDT [facility] Chavez [facility] Final Result Performing Organization Address [facility]/ZIP Co de Phone Number [facility] [address] [place] [address] * (ABNORMAL) RETIC COUNT (12/03/2024 2:15 PM CDT) RETICULOCYTE PERCENT 7.27(H) 0.50 - 2.30 % 12/03/2024 10:13 PM CDT [facility] Reticulocyte Absolute 0.197(H) 0.020 - 0.110 M/uL 12/03/2024 10:13 PM CDT [facility] Immature Retic Fraction 38.4(H) 3.0 - 16.0 % 12/03/2024 10:13 PM CDT [facility] Retic Hemoglobin 31.3 29.0 - 38.0 pg 12/03/2024 10:13 PM CDT [facility] Blood BLOOD SPECIMEN / Unknown 12/03/2024 2:15 PM CDT 12/03/2024 2:26 PM CDT Keyanna Loza BENDING MACHINE SET UP OPERATOR-[facility] LAB BLOOD Final Result [facility] [address] [place] [address] * C-REACTIVE PROTEIN (INFLAMMATION) (12/03/2024 2:15 PM CDT) CRP 1.0 <=5.0 mg/L 12/03/2024 2:49 PM CDT [facility] Blood BLOOD SPECIMEN / Unknown 12/03/2024 2:15 PM CDT 12/03/2024 2:26 PM CDT Keyanna Loza BENDING MACHINE SET UP OPERATOR-[facility] LAB BLOOD Final Result Performing Organization Address City/[facility]/ZIP Co de Phone Number [facility] [address] [place] [address] * HCG SCREEN (12/03/2024 2:15 PM CDT) Beta HCG Screen Negative [facility] COVID-19 AG CARD 12/03/2024 2:48 PM CDT [facility] Blood BLOOD SPECIMEN / Unknown 12/03/2024 2:15 PM CDT 12/03/2024 2:26 PM CDT [facility] BENDING MACHINE SET UP OPERATOR-[facility] LAB BLOOD Final Result [facility] [address] [place] [address] * MAGNESIUM (12/03/2024 2:15 PM CDT) Pathologist [facility] Magnesium 1.9 1.6 - 2.6 mg/dL 12/03/2024 3:02 PM CDT [facility] Blood BLOOD SPECIMEN / Unknown 12/03/2024 2:15 PM CDT 12/03/2024 2:26 PM CDT [facility]avez [facility] BENDING MACHINE SET UP OPERATOR-CD TECHNICIAN LAB BLOOD Final Result [facility] [address] [place] [address] * LIPASE (12/03/2024 2:15 PM CDT) Pathologist [facility] Lipase 23 8 - 78 U/L 12/03/2024 2:49 PM CDT [facility] Blood BLOOD SPECIMEN / Unknown 12/03/2024 2:15 PM CDT 12/03/2024 2:26 PM CDT Keyanna Chavez [facility] BENDING MACHINE SET UP OPERATOR-[facility] LAB BLOOD Final Result [facility] [address] [place] [address] * (ABNORMAL) COMPREHENSIVE METABOLIC PANEL (12/03/2024 2:15 PM CDT) Pathologist [facility] Glucose 87 70 - 99 mg/dL 12/03/2024 2:49 PM CDT [facility] BUN 4(L) 6 - 22 mg/dL 12/03/2024 2:49 PM CDT [facility] Creatinine 0.38(L) 0.55 - 1.02 mg/dL 12/03/2024 2:49 PM CDT [facility] BUN/Creatinine Ratio 10.5 10.0 - 25.0 12/03/2024 2:49 PM [facility] Sodium 138 136 - 145 meq/L 12/03/2024 2:49 PM [facility] Potassium 3.0(L) 3.5 - 5.1 meq/L 12/03/2024 2:49 PM [facility] Chloride 107 98 - 109 meq/L 12/03/2024 2:49 PM [facility] CO2 24 20 - 29 meq/L 12/03/2024 2:49 PM [facility] Anion Gap with K 10 6 - 20 meq/L 12/03/2024 2:49 PM [facility] Calcium 8.9 8.5 - 10.5 mg/dL 12/03/2024 2:49 PM [facility] Protein Total 7.5 6.0 - 8.3 g/dL 12/03/2024 2:49 PM [facility] Albumin 4.4 3.5 - 5.0 g/dL 12/03/2024 2:49 PM [facility] Alkaline Phosphatase 50 40 - 150 U/L 12/03/2024 2:49 PM [facility] AST - SGOT 21 <6 - 45 U/L 12/03/2024 2:49 PM [facility] ALT - SGPT 14 <6 - 55 U/L 12/03/2024 2:49 PM [facility] Bilirubin Total 0.9 0.3 - 1.2 mg/dL 12/03/2024 2:49 PM [facility] Age 34 Years 12/03/2024 2:49 PM [facility] eGFRcr() >90 >=60 mL/min/1.7 3m2 12/03/2024 2:49 PM [facility] Blood BLOOD SPECIMEN / Unknown 12/03/2024 2:15 PM CDT 12/03/2024 2:26 PM T us Keyanna Loza BENDING MACHINE SET UP OPERATOR-CD TECHNICIAN LAB BLOOD Final Result [facility] [address] [place], [place] [address] * (ABNORMAL) LAB ONLY-COMPLETE BLOOD COUNT WITH DIFFERENTIAL (11/06/2024 8:41 PM CDT) WBC 4.8 4.0 - 11.0 K/uL 11/06/2024 8:51 PM CDT [facility] LAB RBC 3.32(L) 3.80 - 5.30 M/uL 11/06/2024 8:51 PM CDT [facility] Hemoglobin 10.3(L) 11.5 - 15.8 g/dL 11/06/2024 8:51 PM T [facility] Hematocrit 30.2(L) 35.0 - 45.0 % 11/06/2024 8:51 PM CDT [facility] MCV 91.0 80.0 - 98.0 fL 11/06/2024 8:51 PM CDT [facility] MCH 31.0 25.5 - 34.0 pg 11/06/2024 8:51 PM CDT [facility] MCHC 34.1 31.5 - 36.5 g/dL 11/06/2024 8:51 PM CDT [facility] RDW-CV 14.9 11.5 - 15.5 % 11/06/2024 8:51 PM CDT [facility] RDW-SD 49.8 35.5 - 50.0 fl 11/06/2024 8:51 PM CDT [facility] Platelet Count 240 140 - 400 K/uL 11/06/2024 8:51 PM T [facility] MPV 9.7 8.5 - 12.0 fL 11/06/2024 8:51 PM CDT [facility] Seg Neut Absolute 2.9 1.8 - 8.0 K/uL 11/06/2024 8:51 PM CDT [facility] Lymphocytes Absolute 1.6 0.8 - 4.1 K/uL 11/06/2024 8:51 PM CDT [facility] Monocytes Absolute 0.3 0.0 - 1.0 K/uL 11/06/2024 8:51 PM CDT [facility] Eosinophils Absolute 0.0 0.0 - 0.7 K/uL 11/06/2024 8:51 PM CDT [facility] Basophil Absolute 0.0 0.0 - 0.2 K/uL 11/06/2024 8:51 PM CDT [facility] Immature Granulocyte Absolute <0.04 0.00 - 0.06 K/uL 11/06/2024 8:51 PM CDT [facility] Neutrophils Abs. (Segs and Bands) 2,900 /uL 11/06/2024 8:51 PM CDT [facility] Neutrophils Percent 59.5 % 11/06/2024 8:51 PM CDT [facility] Lymphocytes Percent 33.3 % 11/06/2024 8:51 PM CDT [facility] Monocytes Percent 5.8 % 11/06/2024 8:51 PM CDT [facility] Immature Granulocyte Percent 0.4 % 11/06/2024 8:51 PM CDT [facility] Eosinophils Percent 0.6 % 11/06/2024 8:51 PM CDT [facility] Basophil Percent 0.4 % 11/07/19 8:51 PM CDT [facility] Blood BLOOD SPECIMEN / Unknown Venipuncture / Unknown 11/06/2024 8:41 PM CDT 11/06/2024 8:43 PM CDT us Ramon JHA LAB ONLY ORDERS Final Result [facility] [address] [place] [address] * C-REACTIVE PROTEIN (INFLAMMATION) (11/06/2024 8:41 PM CDT) CRP 0.9 <=5.0 mg/L 11/06/2024 9:04 PM T [facility] Blood BLOOD SPECIMEN / Unknown Venipuncture / Unknown 11/06/2024 8:41 PM CDT 11/06/2024 8:43 PM CDT us Ramon JHA LAB BLOOD Final Result [facility] [address] [place] [address] * (ABNORMAL) COMPREHENSIVE METABOLIC PANEL (11/06/2024 8:41 PM CDT) [facility] Glucose 99 70 - 99 mg/dL 11/06/2024 9:04 PM CDT [facility] BUN 6 6 - 22 mg/dL 11/06/2024 9:04 PM T [facility] Creatinine 0.54(L) 0.55 - 1.02 mg/dL 11/06/2024 9:04 PM T [facility] BUN/Creatinine Ratio 11.1 10.0 - 25.0 11/06/2024 9:04 PM T [facility] Sodium 139 136 - 145 meq/L 11/06/2024 9:04 PM T [facility] Potassium 3.2(L) 3.5 - 5.1 meq/L 11/06/2024 9:04 PM T [facility] Chloride 107 98 - 109 meq/L 11/06/2024 9:04 PM T [facility] CO2 22 20 - 29 meq/L 11/06/2024 9:04 PM T [facility] Anion Gap with K 13 6 - 20 meq/L 11/06/2024 9:04 PM T [facility] Calcium 9.2 8.5 - 10.5 mg/dL 11/06/2024 9:04 PM T [facility] Protein Total 7.5 6.0 - 8.3 g/dL 11/06/2024 9:04 PM T [facility] Albumin 4.5 3.5 - 5.0 g/dL 11/06/2024 9:04 PM CDT [facility] Alkaline Phosphatase 40 40 - 150 U/L 11/06/2024 9:04 PM CDT [facility] AST - SGOT 22 <6 - 45 U/L 11/06/2024 9:04 PM T [facility] ALT - SGPT 11 <6 - 55 U/L 11/06/2024 9:04 PM T [facility] Bilirubin Total 1.1 0.3 - 1.2 mg/dL 11/06/2024 9:04 PM CDT [facility] Age 34 Years 11/06/2024 9:04 PM T [facility] eGFRcr() >90 >=60 mL/min/1. 73m2 11/06/2024 9:04 PM CDT [facility] Blood BLOOD SPECIMEN / Unknown Venipuncture / Unknown 11/06/2024 8:41 PM CDT 11/06/2024 8:43 PM CDT us Ramon JHA LAB BLOOD Final Result [facility] [address] [place] [address] * (ABNORMAL) COMPLETE BLOOD COUNT NO DIFFERENTIAL (11/01/2024 7:00 AM CDT) WBC 5.0 4.0 - 11.0 K/uL 11/01/2024 7:03 AM [facility] RBC 3.16(L) 3.80 - 5.30 M/uL 11/01/2024 7:03 AM [facility] Hemoglobin 10.0(L) 11.5 - 15.8 g/dL 11/01/2024 7:03 AM [facility] Hematocrit 29.5(L) 35.0 - 45.0 % 11/01/2024 7:03 AM [facility] MCV 93.4 80.0 - 98.0 fL 11/01/2024 7:03 AM [facility] MCH 31.6 25.5 - 34.0 pg 11/01/2024 7:03 AM [facility] MCHC 33.9 31.5 - 36.5 g/dL 11/01/2024 7:03 AM [facility] RDW-CV 16.0(H) 11.5 - 15.5 % 11/01/2024 7:03 AM [facility] RDW-SD 55.0(H) 35.5 - 50.0 fl 11/01/2024 7:03 AM [facility] Platelet Count 290 140 - 400 K/uL 11/01/2024 7:03 AM [facility] MPV 9.2 8.5 - 12.0 fL 11/01/2024 7:03 AM [facility] Blood BLOOD SPECIMEN / Unknown Capillary / Unknown 11/01/2024 7:00 AM CDT 11/01/2024 7:00 AM CDT us Chucky Rendon MD LAB BLOOD Final Result [facility] [address] [place], [place] [address] * (ABNORMAL) BASIC METABOLIC PANEL (11/01/2024 7:00 AM CDT) Glucose 92 70 - 99 mg/dL 11/01/2024 7:28 AM [facility] BUN 3(L) 6 - 22 mg/dL 11/01/2024 7:28 AM [facility] Creatinine 0.39(L) 0.55 - 1.02 mg/dL 11/01/2024 7:28 AM [facility] BUN/Creatinine Ratio 7.7(L) 10.0 - 25.0 11/01/2024 7:28 AM [facility] Sodium 140 136 - 145 meq/L 11/01/2024 7:28 AM T [facility] Potassium 3.5 3.5 - 5.1 meq/L 11/01/2024 7:28 AM [facility] Chloride 110(H) 98 - 109 meq/L 11/01/2024 7:28 AM [facility] CO2 23 20 - 29 meq/L 11/01/2024 7:28 AM [facility] Anion Gap with K 11 6 - 20 meq/L 11/01/2024 7:28 AM T [facility] Calcium 8.8 8.5 - 10.5 mg/dL 11/01/2024 7:28 AM T [facility] Age 34 Years 11/01/2024 7:28 AM [facility] eGFRcr() >90 >=60 mL/min/1.73 m2 11/01/2024 7:28 AM [facility] Fasting Yes Yes, No, Unknown 11/01/2024 7:28 AM [facility] Blood BLOOD SPECIMEN / Unknown 11/01/2024 7:00 AM CDT 11/01/2024 7:00 AM T us Chucky Rendon MD LAB BLOOD Final Result [facility] [address] [place] [address] from Last 3 Months Advance Directives For more information, please contact: [phone] * Full Code (Latest Code Status on File) Date Activated Date Inactivated Comments 10/29/2024 11:41 PM 11/02/2024 7:58 PM Care Teams [employer] Relationship Specialty Start Date End Date Provider, No Attributed, [facility]OURCE [address] PCP - Attributed Provider 01/27/17 Lis Woody MD [address], [place] [id number] PCP - General Family Medicine 10/29/24
--- OUTSIDE RECORDS SUMMARY | 2025-02-01 00:47 | XMS_ITS | Encounter Summary ---
Author Organization [facility] Address [address] [place] [address] [address] [place] [address] Care Team Providers Care Early Interventionist Name Role Phone Provider, No Attributed RESOURCE Unavailable Unavailable Lis Woody MD Primary Care Provider [phone] Encounter Details Date Type Department Care Team (Late st Contact Info) Description 12/09/2024 Results Follow-Up [facility] [address] [facility] [place], [place] [id number] Anitha Keen MD [address] [facility], [place] [id number] C DIFF NAAT WITH REFLEX TO TOXIN A/B, CULTURE BACTERIAL, STOOL, SHIGA-LIKE TOXIN Social History Tobacco Use Types Packs/Day Years Used Date Smoking Tobacco: Light Smoker Alcohol Use Standard Drinks/Week Comments Yes 0 (1 standard drink = 0.6 oz pur e alcohol) [facility] Utilities Answer Date Recorded In the past 12 months has [employer], gas, oil, or water [employer] threatened to shut off services in your [...] any time in the past 12 m [facility], were you homeless or living in a senior living (including now)? No 10/30/2024 Abuse/Neglect Answer Date Recorded Do you have current concerns about any past or present abuse and neglect? No 12/07/2024 Does the patient display any signs or symptoms of abuse or neglect? 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
--- OUTSIDE RECORDS SUMMARY | 2025-02-01 03:47 | XMS_ITS | Clinical Summary ---
Author Organization [facility] Address [address] [place] [address] Care Team Providers Care Sales And Service Advisor Name Role Phone Found, No Pcp MD [...] for each transition of care or referral. 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 Gender Identity Not on file Sexual Orientation Not on file Last Filed Vital Signs Vital Sign Reading Time Taken Comments Blood Pressure 132/73 06/03/2023 7:58 AM PROVIDER NETWORK ANALYST Pulse 70 06/03/2023 7:58 AM PROVIDER NETWORK ANALYST Temperature 36.9 C (98.5 F) 06/03/2023 7:58 AM PROVIDER NETWORK ANALYST Respiratory Rate 16 06/03/2023 7:58 AM PROVIDER NETWORK ANALYST Oxygen Saturation 100% 06/03/2023 7:58 AM PROVIDER NETWORK ANALYST Inhaled Oxygen Concentration - - Weight 50.8 kg (112 lb) 05/31/2023 5:55 PM PROVIDER NETWORK ANALYST Height 157.5 cm (5' 2) 05/31/2023 5:55 PM PROVIDER NETWORK ANALYST Body Mass Index 20.49 05/31/2023 5:55 PM PROVIDER NETWORK ANALYST Plan of Treatment Health Maintenance Due Date [...] patient's age to complete this topic [facility] * Full Code (Latest Code Status on File) Date Activated Date Inactivated Comments 05/31/2023 6:40 PM 06/03/2023 12:54 PM Care Teams Sales And Service Advisor Relationship Specialty Start Date End Date Found, No Pcp, [id number] [place] [address] PCP - General 05/31/23
--- OUTSIDE RECORDS SUMMARY | 2025-02-01 03:47 | XMS_ITS | Clinical Summary ---
Author Organization [facility] [employer] [facility] Address [address] [place] [address] Care Team Providers Care Carding Machine Feeder Name Role Phone Provider, No Attributed RESOURCE Unavailable Unavailable Lis Woody MD Primary Care Provider [phone] Allergies Active Allergy Reactions Criticality Noted Date [...] 01/18/2024 Infectious colitis 01/12/2024 Ulcerative colitis 01/11/2024 [id number] C disease with crisis Abdominal pain 11/25/2023 [...] CDT - 01/17/2025 12:48 PM CDT Emergency [facility] [address] [place] [address] Keyanna Loza, GENERAL STUDIES PROGRAM CHAIR-BROADCAST DIRECTOR OPERATIONS Discharge Disposition: Home, Self Care 01/14/2025 12:14 AM CDT - 01/14/2025 3:40 AM CDT Emergency [facility] [address] [facility] [place] [address] Keyanna Loza, LAMBERTO-BROADCAST DIRECTOR OPERATIONS Discharge Disposition: Home, Self Care 12/29/2024 2:39 AM CDT - 12/29/2024 7:10 AM CDT Emergency [facility] [address] [facility] [place] [address] Alyssa Casas, SEAN Discharge Disposition: Home, Self Care 12/09/2024 Results Follow-Up [facility] [address] [facility] [place] [address] Anitha Keen MD C DIFF NAAT WITH REFLEX TO TOXIN A/B, CULTURE BACTERIAL, STOOL, SHIGA-LIKE TOXIN 12/07/2024 3:10 AM CDT - 12/07/2024 9:40 AM CDT Emergency [facility] [address] [facility] [place] [address] Saurabh Dillon MD Oren, Tara J, PA-C Discharge Disposition: Home, Self Care 12/06/2024 5:43 AM CDT - 12/06/2024 10:54 AM CDT Emergency [facility] [address] [facility] [place] [address] Nikole Joaquin PA Discharge Disposition: Home, Self Care 12/03/2024 12:01 PM CDT - 12/03/2024 7:27 PM CDT Emergency [facility] [address] [facility] [place] [address] Keyanna Loza, LAMBERTO-BROADCAST DIRECTOR OPERATIONS Discharge Disposition: Home, Self Care 11/06/2024 8:15 PM CDT - 11/06/2024 9:24 PM CDT Emergency [address] [address] Emergency, Department [place], RESOURCE Ramon Kennedy PA Discharge Disposition: Home, Self Care 10/29/2024 5:03 PM CDT - 11/02/2024 1:55 PM CDT Hospital Encounter [facility] [address] [place] [address] Keyanna Loza, GENERAL STUDIES PROGRAM CHAIR-BROADCAST DIRECTOR OPERATIONS Chucky Rendon MD Jordan, Jessica M, Sickle [...] = 0.6 oz pur e alcohol) [facility] Utilities Answer Date Recorded In the [...] any time in the past 12 m [facility], were you homeless or living in a group home (including now)? 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 [place] Keyanna Loza [facility] RADIOLOGY DIAGNO STIC Final Result * EKG (01/17/2025 8:09 AM CDT) EKG WAVEFORM Sinus tachycardia Abnormal T, consider ischemia, diffuse leads Ventricular Rate: 106 BPM Atrial Rate: 106 BPM P-R Interval: 142 ms QRS Duration: 82 ms Q-T Interval: 352 ms QTc Calculation(Baz ett): 469 ms Calculated P [place]: 80 degrees Calculated R [place]: 45 degrees Calculated T [place]: -82 degrees TRACECAIOSTUNA [facility]OCELYNE [employer] 01/17/2025 8:09 AM CDT 01/31/2025 4:57 PM CDT Keyanna Loza [facility] EKG Final Result Performing Organization Address [facility]/ZIP Co de Phone Number TRACEMASTER JOCELYNE [facility] * LACTIC ACID REFLEX TO REPEAT (01/17/2025 8:00 AM CDT) Pathologist [facility] Lactic Acid 2.0 0.5 - 2.2 mmol/L 01/17/2025 8:30 AM CDT [facility] Blood BLOOD SPECIMEN / Unknown 01/17/2025 8:00 AM CDT 01/17/2025 8:05 AM CDT Keyanna Loza [facility] LAB BLOOD Final Result [facility] [address] [place], [place] [id number] * (ABNORMAL) LAB ONLY-COMPLETE BLOOD COUNT WITH MANUAL DIFF (01/17/2025 8:00 AM CDT) WBC 9.5 4.0 - 11.0 K/uL 01/17/2025 8:30 AM CDT [facility] RBC 3.08(L) 3.80 - 5.30 M/uL 01/17/2025 8:30 AM CDT [facility] Hemoglobin 9.6(L) 11.5 - 15.8 g/dL 01/17/2025 8:30 AM [facility] Hematocrit 27.6(L) 35.0 - 45.0 % 01/17/2025 8:30 AM [facility] MCV 89.6 80.0 - 98.0 fL 01/17/2025 8:30 AM [facility] MCH 31.2 25.5 - 34.0 pg 01/17/2025 8:30 AM [facility] MCHC 34.8 31.5 - 36.5 g/dL 01/17/2025 8:30 AM [facility] RDW-CV 15.7(H) 11.5 - 15.5 % 01/17/2025 8:30 AM [facility] RDW-SD 52.0(H) 35.5 - 50.0 fl 01/17/2025 8:30 AM [facility] Platelet Count 388 140 - 400 K/uL 01/17/2025 8:30 AM [facility] MPV 8.6 8.5 - 12.0 fL 01/17/2025 8:30 AM [facility] Seg Neut Absolute 5.8 1.8 - 8.0 K/uL 01/17/2025 8:30 AM [facility] Lymphocytes Absolute 3.0 0.8 - 4.1 K/uL 01/17/2025 8:30 AM [facility] Monocytes Absolute 0.7 0.0 - 1.0 K/uL 01/17/2025 8:30 AM [facility] Eosinophils Absolute 0.1 0.0 - 0.7 K/uL 01/17/2025 8:30 AM [facility] Basophil Absolute 0.0 0.0 - 0.2 K/uL 01/17/2025 8:30 AM [facility] Immature Granulocyte Absolute <0.04 0.00 - 0.06 K/uL 01/17/2025 8:30 AM CDT [facility] Neutrophils Percent 60.4 % 01/17/2025 8:30 AM CDT [facility] Lymphocytes Percent 31.2 % 01/17/2025 8:30 AM CDT [facility] Monocytes Percent 7.3 % 01/17/2025 8:30 AM CDT [facility] Immature Granulocyte Percent 0.2 % 01/17/2025 8:30 AM CDT [facility] Eosinophils Percent 0.5 % 01/17/2025 8:30 AM CDT [facility] Basophil Percent 0.4 % 01/18/20 8:30 AM CDT [facility] Blood BLOOD SPECIMEN / Unknown 01/17/2025 8:00 AM CDT 01/17/2025 8:05 AM CDT us Keyanna oLza GENERAL STUDIES PROGRAM CHAIR-BROADCAST DIRECTOR OPERATIONS LAB ONLY ORDERS Final Result [facility] [address] [place] [address] * LAB ONLY-MANUAL DIFFERENTIAL (01/17/2025 8:00 AM CDT) Platelet Estimate Normal [facility] COVID-19 AG CARD 01/17/2025 8:30 AM CDT [facility] Platelet Morphology Normal [facility] COVID-19 AG CARD 01/17/2025 8:30 AM CDT [facility] RBC Morphology Abnormal [facility] COVID-19 AG CARD 01/17/2025 8:30 AM CDT [facility] Sickling Present [facility] COVID-19 AG CARD 01/17/2025 8:30 AM CDT [facility] Blood BLOOD SPECIMEN / Unknown 01/17/2025 8:00 AM CDT 01/17/2025 8:05 AM CDT Narrative [facility] - 01/17/2025 8:30 AM CDT 1-2 sickle cells per field Keyanna Loza GENERAL STUDIES PROGRAM CHAIR-BROADCAST DIRECTOR OPERATIONS LAB ONLY ORDERS Final Result Performing Organization Address City/[facility]/ZIP Co de Phone Number [facility] [address] [address] * PROCALCITONIN (01/17/2025 8:00 AM CDT) Procalcitonin 0.04 <0.07 ng/mL 01/17/2025 8:44 AM CDT [facility] Blood BLOOD SPECIMEN / Unknown 01/17/2025 8:00 AM CDT 01/17/2025 8:05 AM CDT [facility] - 01/17/2025 8:44 AM CDT Suspected Lower [...] accompaniment with other clinical data. Keyanna Loza GENERAL STUDIES PROGRAM CHAIR-BROADCAST DIRECTOR OPERATIONS LAB BLOOD Final Result Performing Organization Address City/[facility]/ZIP Co de Phone Number [facility] [address] [address] * C-REACTIVE PROTEIN (INFLAMMATION) (01/17/2025 8:00 AM CDT) CRP 0.5 <=5.0 mg/L 01/17/2025 8:22 AM CDT [facility] Blood BLOOD SPECIMEN / Unknown 01/17/2025 8:00 AM CDT 01/17/2025 8:05 AM CDT Keyanna Loza GENERAL STUDIES PROGRAM CHAIR-[facility] LAB BLOOD Final Result [facility] [address] [address] * TROPONIN I (01/17/2025 8:00 AM CDT) Troponin I <0.01 0.01 - 0.03 ng/mL 01/17/2025 8:32 AM CDT [facility] Blood BLOOD SPECIMEN / Unknown 01/17/2025 8:00 AM CDT 01/17/2025 8:05 AM CDT Keyanna Loza GENERAL STUDIES PROGRAM CHAIR-[facility] LAB BLOOD Final Result Performing Organization Address City/[facility]/ZIP Co de Phone Number [facility] [address], [place] [address] * MAGNESIUM (01/17/2025 8:00 AM CDT) Magnesium 2.1 1.6 - 2.6 mg/dL 01/17/2025 8:35 AM CDT [facility] Blood BLOOD SPECIMEN / Unknown 01/17/2025 8:00 AM CDT 01/17/2025 8:05 AM CDT Keyanna Loza GENERAL STUDIES PROGRAM CHAIR-[facility] LAB BLOOD Final Result [facility] [address], [place] [address] * (ABNORMAL) COMPREHENSIVE METABOLIC PANEL (01/17/2025 8:00 AM CDT) Glucose 114(H) 70 - 99 mg/dL 01/17/2025 8:30 AM CDT [facility] BUN 6 6 - 22 mg/dL 01/17/2025 8:30 AM [facility] Creatinine 0.38(L) 0.55 - 1.02 mg/dL 01/17/2025 8:30 AM [facility] BUN/Creatinine Ratio 15.8 10.0 - 25.0 01/17/2025 8:30 AM [facility] Sodium 138 136 - 145 meq/L 01/17/2025 8:30 AM [facility] Potassium 2.7(L) 3.5 - 5.1 meq/L 01/17/2025 8:30 AM [facility] Chloride 108 98 - 109 meq/L 01/17/2025 8:30 AM [facility] CO2 19(L) 20 - 29 meq/L 01/17/2025 8:30 AM [facility] Anion Gap with K 14 6 - 20 meq/L 01/17/2025 8:30 AM [facility] Calcium 9.7 8.5 - 10.5 mg/dL 01/17/2025 8:30 AM [facility] Protein Total 8.4(H) 6.0 - 8.3 g/dL 01/17/2025 8:30 AM [facility] Albumin 5.1(H) 3.5 - 5.0 g/dL 01/17/2025 8:30 AM [facility] Alkaline Phosphatase 51 40 - 150 U/L 01/17/2025 8:30 AM [facility] AST - SGOT 26 <6 - 45 U/L 01/17/2025 8:30 AM [facility] ALT - SGPT 20 <6 - 55 U/L 01/17/2025 8:30 AM [facility] Bilirubin Total 1.6(H) 0.3 - 1.2 mg/dL 01/17/2025 8:30 AM [facility] Age 34 Years 01/17/2025 8:30 AM [facility] eGFRcr() >90 >=60 mL/min/1.7 3m2 01/17/2025 8:30 AM [facility] Blood BLOOD SPECIMEN / Unknown 01/17/2025 8:00 AM CDT 01/17/2025 8:05 AM CDT us Keyanna Loza GENERAL STUDIES PROGRAM CHAIR-BROADCAST DIRECTOR OPERATIONS LAB BLOOD Final Result [facility] [address], [place] [address] * URINALYSIS REFLEX TO CULTURE (URINE DIP, REFLEX TO MICROSCOPIC, REFLEX TO CULTURE) (01/17/2025 7:35AM CDT) Color Urine Yellow Earline, Dark Yellow, Straw, Yellow, Colorless 01/17/2025 8:03 AM [facility] Clarity Urine Clear Clear 01/17/2025 8:03 AM [facility] Glucose Urine Negative Negative 01/17/2025 8:03 AM [facility] Bilirubin Urine Negative Negative 8:03 AM [facility] Ketones Urine Negative Negative, 5 mg/dL, 10 mg/dL 01/17/2025 8:03 AM [facility] Specific [place] 1.010 1.002 - 1.030 01/17/2025 8:03 AM [facility] Blood Urine Negative Negative 01/17/2025 8:03 AM [facility] PH Urine 6.5 5.0, 5.5, 6.0, 6.5, 7.0, 7.5, 8.0 01/17/2025 8:03 AM [facility] Protein Urine Negative Negative 01/17/2025 8:03 AM [facility] Urobilinogen < 2 mg/dL < 2 mg/dL 01/17/2025 8:03 AM [facility] Nitrite Negative Negative 01/17/2025 8:03 AM [facility] Leukocyte Esterase Urine Negative Negative 01/17/2025 8:03 AM CDT [facility] Urine URINE SPECIMEN OBTAINED BY CLEAN CATCH PROCEDURE / Unknown 01/17/2025 7:35 AM CDT 01/17/2025 7:58 AM CDT Narrative [facility] - 01/17/2025 8:03 AM CDT Microscopic exam not indicated Culture not performed - reflex criteria not met. Culture is only performed when the urine macroscopic color is reported as Bright [place], or when two or more of the following criteria are met: Positive Nitrite, Positive Leukocyte Esterase, WBC's >5 cells/hpf. Keyanna Loza GENERAL STUDIES PROGRAM CHAIR-BROADCAST DIRECTOR OPERATIONS LAB NON BLOOD Final Result [facility] [address] [place] [address] * HCG SCREEN URINE (01/17/2025 7:35 AM CDT) Urine Negative [facility] COVID-19 AG CARD 01/17/2025 8:09 AM CDT [facility] Urine URINE SPECIMEN OBTAINED BY CLEAN CATCH PROCEDURE / Unknown 01/17/2025 7:35 AM CDT 01/17/2025 7:58 AM CDT Keyanna Loza GENERAL STUDIES PROGRAM CHAIR-BROADCAST DIRECTOR OPERATIONS LAB NON BLOOD Final Result [facility] [address], [place] [address] * LACTIC ACID REFLEX TO REPEAT (01/14/2025 12:45 AM CDT) Lactic Acid 1.5 0.5 - 2.2 mmol/L 01/14/2025 1:22 AM CDT [facility] Blood BLOOD SPECIMEN / Unknown IV start / Unknown 01/14/2025 12:45 AM CDT 01/14/2025 12:56 AM CDT us Keyanna Loza GENERAL STUDIES PROGRAM CHAIR-BROADCAST DIRECTOR OPERATIONS LAB BLOOD Final Result [facility] [address], [place] [address] * (ABNORMAL) LAB ONLY-COMPLETE BLOOD COUNT WITH MANUAL DIFF (01/14/2025 12:45 AM CDT) WBC 7.3 4.0 - 11.0 K/uL 01/14/2025 1:24 AM T [facility] RBC 2.90(L) 3.80 - 5.30 M/uL 01/14/2025 1:24 AM [facility] Hemoglobin 9.2(L) 11.5 - 15.8 g/dL 01/14/2025 1:24 AM [facility] Hematocrit 26.2(L) 35.0 - 45.0 % 01/14/2025 1:24 AM [facility] MCV 90.3 80.0 - 98.0 fL 01/14/2025 1:24 AM [facility] MCH 31.7 25.5 - 34.0 pg 01/14/2025 1:24 AM [facility] MCHC 35.1 31.5 - 36.5 g/dL 01/14/2025 1:24 AM [facility] RDW-CV 16.4(H) 11.5 - 15.5 % 01/14/2025 1:24 AM [facility] RDW-SD 54.3(H) 35.5 - 50.0 fl 01/14/2025 1:24 AM [facility] Platelet Count 323 140 - 400 K/uL 01/14/2025 1:24 AM [facility] MPV 9.3 8.5 - 12.0 fL 01/14/2025 1:24 AM [facility] Blood BLOOD SPECIMEN / Unknown 01/14/2025 12:45 AM CDT 01/14/2025 12:56 AM CDT us Keyanna Loza GENERAL STUDIES PROGRAM CHAIR-BROADCAST DIRECTOR OPERATIONS LAB ONLY ORDERS Final Result [facility] [address], [place] [address] * (ABNORMAL) LAB ONLY-MANUAL DIFFERENTIAL (01/14/2025 12:45 AM CDT) Neutrophils Abs. (Segs and Bands) 4,015 /uL [facility] COVID-19 AG CARD 01/14/2025 1:24 AM CDT [facility] Seg Neut Absolute 4.0 1.8 - 8.0 K/uL [facility] COVID-19 AG CARD 01/14/2025 1:24 AM CDT [facility] Lymphocytes Absolute 2.7 0.8 - 4.1 K/uL [facility] COVID-19 AG CARD 01/14/2025 1:24 AM CDT [facility] Monocytes Absolute 0.5 0.0 - 1.0 K/uL [facility] COVID-19 AG CARD 01/14/2025 1:24 AM CDT [facility] Eosinophils Absolute 0.1 0.0 - 0.7 K/uL [facility] COVID-19 AG CARD 01/14/2025 1:24 AM CDT [facility] Basophil Absolute 0.0 0.0 - 0.2 K/uL [facility] COVID-19 AG CARD 01/14/2025 1:24 AM CDT [facility] Neutrophils Percent 55.0 % [facility] COVID-19 AG CARD 01/14/2025 1:24 AM CDT [facility] Lymphocytes Percent 37.0 % [facility] COVID-19 AG CARD 01/14/2025 1:24 AM CDT [facility] Monocytes Percent 7.0 % [facility] COVID-19 AG CARD 01/14/2025 1:24 AM CDT [facility] Eosinophils Percent 1.0 % [facility] COVID-19 AG CARD 01/14/2025 1:24 AM CDT [facility] Basophil Percent 0.0 % [facility] COVID-19 AG CARD 01/14/2025 1:24 AM CDT [facility] Platelet Estimate Normal [facility] COVID-19 AG CARD 01/14/2025 1:24 AM CDT [facility] Platelet Morphology Normal [facility] COVID-19 AG CARD 01/14/2025 1:24 AM CDT [facility] Nucleated RBC's 2(H) <=1 /100 WBC's [facility] COVID-19 AG CARD 01/14/2025 1:24 AM CDT [facility] RBC Morphology Abnormal [facility] COVID-19 AG CARD 01/14/2025 1:24 AM CDT [facility] Acanthocytes 1+ (up to 1% or 1-2 cells per HPF) [facility] COVID-19 AG CARD 01/14/2025 1:24 AM CDT [facility] [place] Bodies Present [facility] COVID-19 AG CARD 01/14/2025 1:24 AM CDT [facility] Rouleaux Present on LPF [facility] COVID-19 AG CARD 01/14/2025 1:24 AM CDT [facility] Sickling Present [facility] COVID-19 AG CARD 01/14/2025 1:24 AM CDT [facility] Target cells 1+ (5-15% or 10-30 cells per HPF) [facility] COVID-19 AG CARD 01/14/2025 1:24 AM CDT [facility] Blood BLOOD SPECIMEN / Unknown 01/14/2025 12:45 AM CDT 01/14/2025 12:56 AM CDT us Keyanna Loza GENERAL STUDIES PROGRAM CHAIR-BROADCAST DIRECTOR OPERATIONS LAB ONLY ORDERS Final Result [facility] [address], [place] [address] * URINALYSIS REFLEX TO CULTURE (URINE DIP, REFLEX TO MICROSCOPIC, REFLEX TO CULTURE) (01/14/2025 12:45 AM T) Color Urine Yellow Earline, Dark Yellow, Straw, Yellow, Colorless 01/14/2025 1:01 AM [facility] Clarity Urine Clear Clear 01/14/2025 1:01 AM [facility] Glucose Urine Negative Negative 01/14/2025 1:01 AM [facility] Bilirubin Urine Negative Negative 1:01 AM [facility] Ketones Urine Negative Negative, 5 mg/dL, 10 mg/dL 01/14/2025 1:01 AM [facility] Specific [place] 1.010 1.002 - 1.030 01/14/2025 1:01 AM [facility] Blood Urine Negative Negative 01/14/2025 1:01 AM [facility] PH Urine 7.0 5.0, 5.5, 6.0, 6.5, 7.0, 7.5, 8.0 01/14/2025 1:01 AM [facility] Protein Urine Negative Negative 01/14/2025 1:01 AM [facility] Urobilinogen < 2 mg/dL < 2 mg/dL 01/14/2025 1:01 AM [facility] Nitrite Negative Negative 01/14/2025 1:01 AM [facility] Leukocyte Esterase Urine Negative Negative 01/14/2025 1:01 AM [facility] Urine URINE SPECIMEN OBTAINED BY CLEAN CATCH PROCEDURE / Unknown 01/14/2025 12:45 AM T 01/14/2025 12:[address] [facility] - 01/14/2025 1:01 AM [facility] Microscopic exam not indicated Culture not performed - reflex criteria not met. Culture is only performed when the urine macroscopic color is reported as Bright [place], or when two or more of the following criteria are met: Positive Nitrite, Positive Leukocyte Esterase, WBC's >5 cells/hpf. Keyanna Mirimus [facility] GENERAL STUDIES PROGRAM CHAIR-[facility] NON BLOOD Final Result Performing Organization Address City/[facility]/ZIP Co de Phone Number [facility] [address] [address] * (ABNORMAL) PROCALCITONIN (01/14/2025 12:45 AM CDT) Procalcitonin 0.10(H) <0.07 ng/mL 01/14/2025 1:38 AM CDT [facility] Blood BLOOD SPECIMEN / Unknown 01/14/2025 12:45 AM CDT 01/14/2025 12:56 AM CDT [facility] - 01/14/2025 1:38 AM CDT Suspected Lower [...] in accompaniment with other clinical data. Keyanna Mirimus [facility] GENERAL STUDIES PROGRAM CHAIR-[facility] BLOOD Final Result Performing Organization Address City/[facility]/ZIP Co de Phone Number [facility] [address] [address] * HCG SCREEN URINE (01/14/2025 12:45 AM CDT) Urine Negative [employer] COVID-19 AG CARD 01/14/2025 1:04 AM CDT [facility] Urine URINE SPECIMEN OBTAINED BY CLEAN CATCH PROCEDURE / Unknown 01/14/2025 12:45 AM CDT 01/14/2025 12:56 AM CDT Keyanna Loza APRN-[facility] NON BLOOD Final Result [facility] [address], [place] [address] * C-REACTIVE PROTEIN (INFLAMMATION) (01/14/2025 12:45 AM CDT) CRP 2.4 <=5.0 mg/L 01/14/2025 1:22 AM CDT [facility] Blood BLOOD SPECIMEN / Unknown 01/14/2025 12:45 AM CDT 01/14/2025 12:56 AM CDT Keyanna Loza GENERAL STUDIES PROGRAM CHAIR-[facility] BLOOD Final Result Performing Organization Address City/[facility]/ZIP Co de Phone Number [facility] [address], [place] [address] * MAGNESIUM (01/14/2025 12:45 AM CDT) Magnesium 2.1 1.6 - 2.6 mg/dL 01/14/2025 1:27 AM CDT [facility] Blood BLOOD SPECIMEN / Unknown 01/14/2025 12:45 AM CDT 01/14/2025 12:56 AM CDT Keyanna Loza GENERAL STUDIES PROGRAM CHAIR-[facility] BLOOD Final Result [facility] [address], [place] [address] * LIPASE (01/14/2025 12:45 AM CDT) Lipase 22 8 - 78 U/L 01/14/2025 1:22 AM CDT [facility] Blood BLOOD SPECIMEN / Unknown 01/14/2025 12:45 AM CDT 01/14/2025 12:56 AM CDT us Keyanna Loza GENERAL STUDIES PROGRAM CHAIR-[facility] DIRECTOR OPERATIONS LAB BLOOD Final Result [facility] [address], [place] [address] * (ABNORMAL) COMPREHENSIVE METABOLIC PANEL (01/14/2025 12:45 AM CDT) Glucose 80 70 - 99 mg/dL 01/14/2025 1:22 AM [facility] [place] BUN 5(L) 6 - 22 mg/dL 01/14/2025 1:22 AM [facility] [place] Creatinine 0.44(L) 0.55 - 1.02 mg/dL 01/14/2025 1:22 AM [facility] [place] BUN/Creatinine Ratio 11.4 10.0 - 25.0 01/14/2025 1:22 AM [facility] [place] Sodium 137 136 - 145 meq/L 01/14/2025 1:22 AM [facility] [place] Potassium 3.3(L) 3.5 - 5.1 meq/L 01/14/2025 1:22 AM [facility] [place] Chloride 106 98 - 109 meq/L 01/14/2025 1:22 AM [facility] [place] CO2 19(L) 20 - 29 meq/L 01/14/2025 1:22 AM [facility] [place] Anion Gap with K 15 6 - 20 meq/L 01/14/2025 1:22 AM [facility] Calcium 9.4 8.5 - 10.5 mg/dL 01/14/2025 1:22 AM [facility] Protein Total 8.2 6.0 - 8.3 g/dL 01/14/2025 1:22 AM [facility] Albumin 4.9 3.5 - 5.0 g/dL 01/14/2025 1:22 AM [facility] Alkaline Phosphatase 50 40 - 150 U/L 01/14/2025 1:22 AM [facility] AST - SGOT 41 <6 - 45 U/L 01/14/2025 1:22 AM [facility] ALT - SGPT 30 <6 - 55 U/L 01/14/2025 1:22 AM [facility] Bilirubin Total 1.1 0.3 - 1.2 mg/dL 01/14/2025 1:22 AM [facility] Age 34 Years 01/14/2025 1:22 AM [facility] eGFRcr() >90 >=60 mL/min/1.7 3m2 01/14/2025 1:22 AM [facility] Blood BLOOD SPECIMEN / Unknown 01/14/2025 12:45 AM CDT 01/14/2025 12:56 AM CDT us Keyanna Loza GENERAL STUDIES PROGRAM CHAIR-BROADCAST DIRECTOR OPERATIONS LAB BLOOD Final Result [facility] [address] [place] [address] * (ABNORMAL) URINALYSIS REFLEX TO CULTURE (URINE DIP, REFLEX TO MICROSCOPIC, REFLEX TO CULTURE) (12/29/2024 6:15 AM CDT) Color Urine Yellow Earline, Dark Yellow, Straw, Yellow, Colorless 12/29/2024 6:35 AM [facility] Clarity Urine Clear Clear 12/29/2024 6:35 AM [facility] Glucose Urine Negative Negative 12/29/2024 6:35 AM [facility] Bilirubin Urine Negative Negative 6:35 AM [facility] Ketones Urine Negative Negative, 5 mg/dL, 10 mg/dL 12/29/2024 6:35 AM [facility] Specific [place] 1.010 1.002 - 1.030 12/29/2024 6:35 AM CDT [facility] Blood Urine Negative Negative 12/29/2024 6:35 AM CDT [facility] PH Urine 6.5 5.0, 5.5, 6.0, 6.5, 7.0, 7.5, 8.0 12/29/2024 6:35 AM CDT [facility] Protein Urine Negative Negative 12/29/2024 6:35 AM CDT [facility] Urobilinogen 2 mg/dL(A) < 2 mg/dL 12/29/2024 6:35 AM CDT [facility] Nitrite Negative Negative 12/29/2024 6:35 AM CDT [facility] Leukocyte Esterase Urine Negative Negative 12/29/2024 6:35 AM CDT [facility] Urine URINE SPECIMEN OBTAINED BY CLEAN CATCH PROCEDURE / Unknown 12/29/2024 6:15 AM CDT 12/29/2024 6:22 AM CDT Narrative [facility] - 12/29/2024 6:35 AM CDT Microscopic exam not indicated Culture not performed - reflex criteria not met. Culture is only performed when the urine macroscopic color is reported as Bright [place], or when two or more of the following criteria are met: Positive Nitrite, Positive Leukocyte Esterase, WBC's >5 cells/hpf. us Alyssa Casas CNP LAB NON BLOOD Final Resul t [facility] [address] [place], [place] [id number] * LACTIC ACID (12/29/2024 6:10 AM CDT) Lactic Acid 1.3 0.5 - 2.2 mmol/L 12/29/2024 6:39 AM CDT [facility] Blood BLOOD SPECIMEN / Unknown 12/29/2024 6:10 AM CDT 12/29/2024 6:12 AM CDT us Alyssa Tamika Augusto BROADCAST DIRECTOR OPERATIONS LAB BLOOD Final Resul t [facility] [address] [place], [place] [address] * (ABNORMAL) LAB ONLY-COMPLETE BLOOD COUNT WITH MANUAL DIFF (12/29/2024 3:05 AM T) WBC 6.9 4.0 - 11.0 K/uL 12/29/2024 3:43 AM [facility] RBC 3.07(L) 3.80 - 5.30 M/uL 12/29/2024 3:43 AM [facility] Hemoglobin 9.6(L) 11.5 - 15.8 g/dL 12/29/2024 3:43 AM [facility] Hematocrit 28.1(L) 35.0 - 45.0 % 12/29/2024 3:43 AM [facility] MCV 91.5 80.0 - 98.0 fL 12/29/2024 3:43 AM [facility] MCH 31.3 25.5 - 34.0 pg 12/29/2024 3:43 AM [facility] MCHC 34.2 31.5 - 36.5 g/dL 12/29/2024 3:43 AM [facility] RDW-CV 16.1(H) 11.5 - 15.5 % 12/29/2024 3:43 AM [facility] RDW-SD 53.1(H) 35.5 - 50.0 fl 12/29/2024 3:43 AM [facility] Platelet Count 417(H) 140 - 400 K/uL 12/29/2024 3:43 AM [facility] MPV 8.8 8.5 - 12.0 fL 12/29/2024 3:43 AM [facility] Seg Neut Absolute 4.3 1.8 - 8.0 K/uL 12/29/2024 3:43 AM [facility] Lymphocytes Absolute 1.9 0.8 - 4.1 K/uL 12/29/2024 3:43 AM CDT [facility] Monocytes Absolute 0.7 0.0 - 1.0 K/uL 12/29/2024 3:43 AM T [facility] Eosinophils Absolute 0.0 0.0 - 0.7 K/uL 12/29/2024 3:43 AM CDT [facility] Basophil Absolute 0.1 0.0 - 0.2 K/uL 12/29/2024 3:43 AM CDT [facility] Immature Granulocyte Absolute <0.04 0.00 - 0.06 K/uL 12/29/2024 3:43 AM T [facility] Neutrophils Percent 62.0 % 12/29/2024 3:43 AM T [facility] Lymphocytes Percent 27.0 % 12/29/2024 3:43 AM T [facility] Monocytes Percent 9.6 % 12/29/2024 3:43 AM T [facility] Immature Granulocyte Percent 0.3 % 12/29/2024 3:43 AM T [facility] Eosinophils Percent 0.4 % 12/29/2024 3:43 AM T [facility] Basophil Percent 0.7 % 12/30/19 3:43 AM [facility] Blood BLOOD SPECIMEN / Unknown 12/29/2024 3:05 AM CDT 12/29/2024 3:20 AM CDT us Alyssa Casas BROADCAST DIRECTOR OPERATIONS LAB ONLY ORDERS Final Resul t [facility] [address] [place] [address] * LAB ONLY-MANUAL DIFFERENTIAL (12/29/2024 3:05 AM CDT) Platelet Estimate Increased [facility] COVID-19 AG CARD 12/29/2024 3:43 AM CDT [facility] Platelet Morphology Normal [facility] COVID-19 AG CARD 12/29/2024 3:43 AM CDT [facility] RBC Morphology Abnormal [facility] COVID-19 AG CARD 12/29/2024 3:43 AM CDT [facility] Rouleaux Present on LPF [facility] COVID-19 AG CARD 12/29/2024 3:43 AM CDT [facility] Sickling Present [facility] COVID-19 AG CARD 12/29/2024 3:43 AM CDT [facility] Spherocytes 1+ (up to 1% or 1-2 cells per HPF) [facility] COVID-19 AG CARD 12/29/2024 3:43 AM CDT [facility] Blood BLOOD SPECIMEN / Unknown 12/29/2024 3:05 AM CDT 12/29/2024 3:20 AM CDT us Alyssa Casas BROADCAST DIRECTOR OPERATIONS LAB ONLY ORDERS Final Resul t Performing Organization Address City/[facility]/ZIP Co de Phone Number [facility] [address] [facility] [place] [address] * C-REACTIVE PROTEIN (INFLAMMATION) (12/29/2024 3:05 AM CDT) CRP 3.5 <=5.0 mg/L 12/29/2024 3:37 AM CDT [facility] Blood BLOOD SPECIMEN / Unknown 12/29/2024 3:05 AM CDT 12/29/2024 3:20 AM CDT us Alyssa Casas BROADCAST DIRECTOR OPERATIONS LAB BLOOD Final Resul t [facility] [address] [facility] [facility], [place] [id number] * HCG SCREEN (12/29/2024 3:05 AM CDT) Beta HCG Screen Negative [facility] COVID-19 AG CARD 12/29/2024 3:30 AM CDT [facility] Blood BLOOD SPECIMEN / Unknown 12/29/2024 3:05 AM CDT 12/29/2024 3:20 AM CDT us Alyssa Tamika Casas [facility] LAB BLOOD Final Resul t Performing Organization Address City/[facility]/ZIP Co de Phone Number [facility] [address] [place] [address] * MAGNESIUM (12/29/2024 3:05 AM CDT) Magnesium 2.0 1.6 - 2.6 mg/dL 12/29/2024 4:00 AM CDT [facility] Blood BLOOD SPECIMEN / Unknown 12/29/2024 3:05 AM CDT 12/29/2024 3:45 AM CDT us Alyssa Casas [facility] LAB BLOOD Final Resul t Performing Organization Address [facility]/ZIP Co de Phone Number [facility] [address] [place] [address] * LIPASE (12/29/2024 3:05 AM CDT) Lipase 23 8 - 78 U/L 12/29/2024 3:43 AM CDT [facility] Blood BLOOD SPECIMEN / Unknown 12/29/2024 3:05 AM CDT 12/29/2024 3:20 AM CDT us Alyssa Tamika Casas [facility] LAB BLOOD Final Resul t Performing Organization Address City/[facility]/ZIP Co de Phone Number [facility] [address] [place] [address] * (ABNORMAL) LACTIC ACID (12/29/2024 3:05 AM CDT) Lactic Acid 2.8(H) 0.5 - 2.2 mmol/L 12/29/2024 3:43 AM CDT [facility] Blood BLOOD SPECIMEN / Unknown 12/29/2024 3:05 AM CDT 12/29/2024 3:20 AM CDT Narrative [facility] - 12/29/2024 3:43 AM CDT Sepsis protocol threshold: >2.0 mmol/L us Alyssa Lundberg Augusto BROADCAST DIRECTOR OPERATIONS LAB BLOOD Final Resul t [facility] [address] [place], [place] [address] * (ABNORMAL) COMPREHENSIVE METABOLIC PANEL (12/29/2024 3:05 AM CDT) Glucose 126(H) 70 - 99 mg/dL 12/29/2024 3:43 AM [facility] BUN 5(L) 6 - 22 mg/dL 12/29/2024 3:43 AM [facility] Creatinine 0.38(L) 0.55 - 1.02 mg/dL 12/29/2024 3:43 AM [facility] BUN/Creatinine Ratio 13.2 10.0 - 25.0 12/29/2024 3:43 AM [facility] Sodium 139 136 - 145 meq/L 12/29/2024 3:43 AM [facility] Potassium 3.4(L) 3.5 - 5.1 meq/L 12/29/2024 3:43 AM [facility] Chloride 107 98 - 109 meq/L 12/29/2024 3:43 AM [facility] CO2 21 20 - 29 meq/L 12/29/2024 3:43 AM [facility] Anion Gap with K 14 6 - 20 meq/L 12/29/2024 3:43 AM [facility] Calcium 9.5 8.5 - 10.5 mg/dL 12/29/2024 3:43 AM [facility] Protein Total 8.4(H) 6.0 - 8.3 g/dL 12/29/2024 3:43 AM [facility] Albumin 4.9 3.5 - 5.0 g/dL 12/29/2024 3:43 AM [facility] Alkaline Phosphatase 55 40 - 150 U/L 12/29/2024 3:43 AM [facility] AST - SGOT 53(H) <6 - 45 U/L 12/29/2024 3:43 AM [facility] ALT - SGPT 43 <6 - 55 U/L 12/29/2024 3:43 AM [facility] Bilirubin Total 1.2 0.3 - 1.2 mg/dL 12/29/2024 3:43 AM [facility] Age 34 Years 12/29/2024 3:43 AM [facility] eGFRcr() >90 >=60 mL/min/1.7 3m2 12/29/2024 3:43 AM [facility] Blood BLOOD SPECIMEN / Unknown 12/29/2024 3:05 AM T 12/29/2024 3:20 AM CDT us Alyssa Casas BROADCAST DIRECTOR OPERATIONS LAB BLOOD Final Resul t [facility] [address] [place] [address] * (ABNORMAL) LAB ONLY-COMPLETE BLOOD COUNT WITH MANUAL DIFF (12/07/2024 8:05 AM T) WBC 8.1 4.0 - 11.0 K/uL 12/07/2024 8:36 AM [facility] RBC 2.59(L) 3.80 - 5.30 M/uL 12/07/2024 8:36 AM [facility] Hemoglobin 8.2(L) 11.5 - 15.8 g/dL 12/07/2024 8:36 AM [facility] Hematocrit 23.6(L) 35.0 - 45.0 % 12/07/2024 8:36 AM [facility] MCV 91.1 80.0 - 98.0 fL 12/07/2024 8:36 AM CDT [facility] MCH 31.7 25.5 - 34.0 pg 12/07/2024 8:36 AM CDT [facility] MCHC 34.7 31.5 - 36.5 g/dL 12/07/2024 8:36 AM T [facility] RDW-CV 16.2(H) 11.5 - 15.5 % 12/07/2024 8:36 AM T [facility] RDW-SD 54.5(H) 35.5 - 50.0 fl 12/07/2024 8:36 AM T [facility] Platelet Count 355 140 - 400 K/uL 12/07/2024 8:36 AM T [facility] MPV 8.7 8.5 - 12.0 fL 12/07/2024 8:36 AM T [facility] Blood BLOOD SPECIMEN / Unknown Venipuncture / Unknown 12/07/2024 8:05 AM CDT 12/07/2024 8:11 AM CDT us Meghan Borges PA-C LAB ONLY ORDERS Final Result [facility] [address] [place] [address] * LAB ONLY-MANUAL DIFFERENTIAL (12/07/2024 8:05 AM CDT) Neutrophils Abs. (Segs and Bands) 4,293 /uL [facility] COVID-19 AG CARD 12/07/2024 8:36 AM CDT [facility] Seg Neut Absolute 4.3 1.8 - 8.0 K/uL [facility] COVID-19 AG CARD 12/07/2024 8:36 AM CDT [facility] Lymphocytes Absolute 3.2 0.8 - 4.1 K/uL [facility] COVID-19 AG CARD 12/07/2024 8:36 AM CDT [facility] Monocytes Absolute 0.6 0.0 - 1.0 K/uL [facility] COVID-19 AG CARD 12/07/2024 8:36 AM T [facility] Eosinophils Absolute 0.1 0.0 - 0.7 K/uL [facility] COVID-19 AG CARD 12/07/2024 8:36 AM T [facility] Neutrophils Percent 53.0 % [facility] COVID-19 AG CARD 12/07/2024 8:36 AM T [facility] Lymphocytes Percent 39.0 % [facility] COVID-19 AG CARD 12/07/2024 8:36 AM T [facility] Monocytes Percent 7.0 % [facility] COVID-19 AG CARD 12/07/2024 8:36 AM T [facility] Eosinophils Percent 1.0 % [facility] COVID-19 AG CARD 12/07/2024 8:36 AM T [facility] Platelet Estimate Normal [facility] COVID-19 AG CARD 12/07/2024 8:36 AM T [facility] Platelet Morphology Normal [facility] COVID-19 AG CARD 12/07/2024 8:36 AM T [facility] RBC Morphology Abnormal [facility] COVID-19 AG CARD 12/07/2024 8:36 AM T [facility] Sickling Present [facility] COVID-19 AG CARD 12/07/2024 8:36 AM T [facility] Target cells 1+ (5-15% or 10-30 cells per HPF) [facility] COVID-19 AG CARD 12/07/2024 8:36 AM T [facility] Blood BLOOD SPECIMEN / Unknown Venipuncture / Unknown 12/07/2024 8:05 AM CDT 12/07/2024 8:11 AM CDT us Meghan Borges PA-C LAB ONLY ORDERS Final Result [facility] [address] [place] [address] * (ABNORMAL) CK (12/07/2024 8:05 AM CDT) CK 24(L) 29 - 168 U/L 12/07/2024 9:03 AM [facility] Blood BLOOD SPECIMEN / Unknown Venipuncture / Unknown 12/07/2024 8:05 AM CDT 12/07/2024 8:31 AM CDT us Saurabh Dillon MD LAB BLOOD Final Result [facility] [address] [place], [place] [address] * (ABNORMAL) COMPREHENSIVE METABOLIC PANEL (12/07/2024 8:05 AM CDT) Pathologist [facility] Glucose 83 70 - 99 mg/dL 12/07/2024 8:31 AM [facility] BUN 6 6 - 22 mg/dL 12/07/2024 8:31 AM [facility] Creatinine 0.42(L) 0.55 - 1.02 mg/dL 12/07/2024 8:31 AM [facility] BUN/Creatinine Ratio 14.3 10.0 - 25.0 12/07/2024 8:31 AM [facility] Sodium 139 136 - 145 meq/L 12/07/2024 8:31 AM [facility] Potassium 3.3(L) 3.5 - 5.1 meq/L 12/07/2024 8:31 AM [facility] Chloride 110(H) 98 - 109 meq/L 12/07/2024 8:31 AM [facility] CO2 22 20 - 29 meq/L 12/07/2024 8:31 AM [facility] Anion Gap with K 10 6 - 20 meq/L 12/07/2024 8:31 AM [facility] Calcium 8.6 8.5 - 10.5 mg/dL 12/07/2024 8:31 AM [facility] Protein Total 6.7 6.0 - 8.3 g/dL 12/07/2024 8:31 AM [facility] Albumin 3.9 3.5 - 5.0 g/dL 12/07/2024 8:31 AM [facility] Alkaline Phosphatase 48 40 - 150 U/L 12/07/2024 8:31 AM [facility] AST - SGOT 17 <6 - 45 U/L 12/07/2024 8:31 AM [facility] ALT - SGPT 10 <6 - 55 U/L 12/07/2024 8:31 AM [facility] Bilirubin Total 0.7 0.3 - 1.2 mg/dL 12/07/2024 8:31 AM [facility] Corrected Calcium 8.7 8.5 - 10.5 mg/dL 12/07/2024 8:31 AM [facility] Age 34 Years 12/07/2024 8:31 AM [facility] eGFRcr() >90 >=60 mL/min/1.7 3m2 12/07/2024 8:31 AM [facility] Blood BLOOD SPECIMEN / Unknown Venipuncture / Unknown 12/07/2024 8:05 AM CDT 12/07/2024 8:12 AM CDT us Meghan Borges PA-C LAB BLOOD Final Result [facility] [address] [place] [address] * C DIFF NAAT WITH REFLEX TO TOXIN A/B (12/06/2024 10:13 AM CDT) C diff tcdB Gene NAAT Not Detected Not Detected GENEXPER T DX SYSTEM_C EPHEID_M NI 12/06/2024 5:46 PM [facility] Comment:C. difficile toxin g shawna is absent or below the limit of detection (NAAT negative). No further testing to follow. Repeat testing is not recommended within 7 days. 027/NAP1/BI Presumptive Negative Presumptive Negative GENEXSidecar T DX SYSTEM_C EPHEID_M NI 12/06/2024 5:46 PM CDT [facility] Feces FECES / Unknown 12/06/2024 1 0:13 AM CDT 12/06/2024 4:58 PM CDT Narrative [facility] - 12/06/2024 5:46 PM CDT Detection of 027/NAP1/BI strains of C. difficile is presumptive and solely for epidemiological purposes. It is not intended to guide or monitor treatment for C. difficile infections. Treatment remains the same. This test was performed by polymerase chain reaction (PCR) on the GeneXpert instrument. Nikole JHA LAB NON BLOOD Final Result Performing Organization Address [facility] Co de Phone Number [facility] [address] [place] [address] * CULTURE BACTERIAL, STOOL (12/06/2024 10:13 AM CDT) [facility] Culture Result No enteric pathogens isolated. 12/11/2024 12:52 AM CDT [facility] Feces FECES / Unknown 12/06/2024 1 0:13 AM CDT 12/06/2024 4:58 PM CDT Narrative [facility] - 12/11/2024 12:52 AM CDT Negative for [...] LAB MICROBIOLOGY Final Result Performing Organization Address [facility] Co de Phone Number [facility] [address] [place] [id number] * SHIGA-LIKE TOXIN (12/06/2024 10:13 AM CDT) Pathologist [facility] Shigatoxin 1 Not Detected Not Detected 12/10/19 11:11 AM CDT [facility] Shigatoxin 2 Not Detected Not Detected 12/10/19 11:11 AM CDT [facility] Feces FECES / Unknown 12/06/2024 1 0:13 AM CDT 12/06/2024 4:58 PM CDT Nikole [facility] LAB NON BLOOD Final Result Performing Organization Address [facility] Co de Phone Number [facility] [address] [place] [id number] * URINALYSIS REFLEX TO CULTURE (URINE DIP, REFLEX TO MICROSCOPIC, REFLEX TO CULTURE) (12/06/2024 8:41AM CDT) Pathologist [facility] Color Urine Yellow Earline, Dark Yellow, Straw, Yellow, Colorless 12/06/2024 8:44 AM [facility] Clarity Urine Clear Clear 12/06/2024 8:44 AM [facility] Glucose Urine Negative Negative 12/06/2024 8:44 AM T [facility] Bilirubin Urine Negative Negative 8:44 AM T [facility] Ketones Urine Negative Negative, 5 mg/dL, 10 mg/dL 12/06/2024 8:44 AM [facility] Specific [place] 1.015 1.002 - 1.030 12/06/2024 8:44 AM [facility] Blood Urine Negative Negative 12/06/2024 8:44 AM [facility] PH Urine 7.0 5.0, 5.5, 6.0, 6.5, 7.0, 7.5, 8.0 12/06/2024 8:44 AM T [facility] Protein Urine Negative Negative 12/06/2024 8:44 AM T [facility] Urobilinogen < 2 mg/dL < 2 mg/dL 12/06/2024 8:44 AM T [facility] Nitrite Negative Negative 12/06/2024 8:44 AM [facility] Leukocyte Esterase Urine Negative Negative 12/06/2024 8:44 AM [facility] Urine URINE SPECIMEN OBTAINED BY CLEAN CATCH PROCEDURE / Unknown 12/06/2024 8:41 AM CDT 12/06/2024 8:41 AM CDT [facility] - 12/06/2024 8:44 AM CDT Microscopic exam not indicated Culture not performed - reflex criteria not met. Culture is only performed when the urine macroscopic color is reported as Bright [place], or when two or more of the following criteria are met: Positive Nitrite, Positive Leukocyte Esterase, WBC's >5 cells/hpf. us Nikole JHA LAB NON BLOOD Final Result [facility] [address] [place], [place] [address] * (ABNORMAL) LAB ONLY-COMPLETE BLOOD COUNT WITH MANUAL DIFF (12/06/2024 6:59 AM CDT) WBC 5.4 4.0 - 11.0 K/uL 12/06/2024 7:21 AM [facility] RBC 2.79(L) 3.80 - 5.30 M/uL 12/06/2024 7:21 AM [facility] Hemoglobin 8.8(L) 11.5 - 15.8 g/dL 12/06/2024 7:21 AM [facility] Hematocrit 25.5(L) 35.0 - 45.0 % 12/06/2024 7:21 AM [facility] MCV 91.4 80.0 - 98.0 fL 12/06/2024 7:21 AM CDT [facility] MCH 31.5 25.5 - 34.0 pg 12/06/2024 7:21 AM CDT [facility] MCHC 34.5 31.5 - 36.5 g/dL 12/06/2024 7:21 AM T [facility] RDW-CV 16.6(H) 11.5 - 15.5 % 12/06/2024 7:21 AM T [facility] RDW-SD 54.7(H) 35.5 - 50.0 fl 12/06/2024 7:21 AM T [facility] Platelet Count 362 140 - 400 K/uL 12/06/2024 7:21 AM [facility] MPV 8.4(L) 8.5 - 12.0 fL 12/06/2024 7:21 AM T [facility] Blood BLOOD SPECIMEN / Unknown Venipuncture / Unknown 12/06/2024 6:59 AM CDT 12/06/2024 6:59 AM CDT us Nikole JHA LAB ONLY ORDERS Final Result [facility] [address] [place] [address] * LAB ONLY-MANUAL DIFFERENTIAL (12/06/2024 6:59 AM CDT) Neutrophils Abs. (Segs and Bands) 2,592 /uL [facility] COVID-19 AG CARD 12/06/2024 7:21 AM CDT [facility] Seg Neut Absolute 2.6 1.8 - 8.0 K/uL [facility] COVID-19 AG CARD 12/06/2024 7:21 AM CDT [facility] Lymphocytes Absolute 2.4 0.8 - 4.1 K/uL [facility] COVID-19 AG CARD 12/06/2024 7:21 AM CDT [facility] Monocytes Absolute 0.4 0.0 - 1.0 K/uL [facility] COVID-19 AG CARD 12/06/2024 7:21 AM T [facility] Neutrophils Percent 48.0 % [facility] 12/06/2024 7:21 AM T [facility] Lymphocytes Percent 44.0 % [facility] AG CARD 12/06/2024 7:21 AM T [facility] Monocytes Percent 8.0 % [facility] AG CARD 12/06/2024 7:21 AM T [facility] Platelet Estimate Normal [facility]-19 AG CARD 12/06/2024 7:21 AM T [facility] Platelet Morphology Normal [facility] 12/06/2024 7:21 AM T [facility] Spherocytes 1+ (up to 1% or 1-2 cells per HPF) [facility] 12/06/2024 7:21 AM T [facility] Target cells 1+ (5-15% or 10-30 cells per HPF) [facility] 12/06/2024 7:21 AM T [facility] Blood BLOOD SPECIMEN / Unknown Venipuncture / Unknown 12/06/2024 6:59 AM CDT 12/06/2024 6:59 AM CDT us Nikole JHA LAB ONLY ORDERS Final Result [facility] [address] [place] [address] * C-REACTIVE PROTEIN (INFLAMMATION) (12/06/2024 6:59 AM CDT) CRP 0.7 <=5.0 mg/L 12/06/2024 7:48 AM T [facility] Blood BLOOD SPECIMEN / Unknown 12/06/2024 6:59 AM CDT 12/06/2024 7:31 AM CDT us Alyssa Casas BROADCAST DIRECTOR OPERATIONS LAB BLOOD Final Resul t [facility] [address] [place], [place] [address] * MAGNESIUM (12/06/2024 6:59 AM CDT) Magnesium 1.8 1.6 - 2.6 mg/dL 12/06/2024 7:17 AM CDT [facility] Blood BLOOD SPECIMEN / Unknown 12/06/2024 6:59 AM CDT 12/06/2024 6:59 AM CDT us Nikole Joaquin PA LAB BLOOD Final Result Performing Organization Address [facility]/ZIP Co de Phone Number [facility] [address] [place] [address] * LACTIC ACID (12/06/2024 6:59 AM CDT) Lactic Acid 1.8 0.5 - 2.2 mmol/L 12/06/2024 8:03 AM CDT [facility] Blood BLOOD SPECIMEN / Unknown 12/06/2024 6:59 AM CDT 12/06/2024 7:48 AM CDT us Alyssa Casas BROADCAST DIRECTOR OPERATIONS LAB BLOOD Final Resul t [facility] [address] [place] [address] * (ABNORMAL) COMPREHENSIVE METABOLIC PANEL (12/06/2024 6:59 AM CDT) Glucose 84 70 - 99 mg/dL 12/06/2024 7:21 AM CDT [facility] BUN 6 6 - 22 mg/dL 12/06/2024 7:21 AM CDT [facility] Creatinine 0.41(L) 0.55 - 1.02 mg/dL 12/06/2024 7:21 AM [facility] BUN/Creatinine Ratio 14.6 10.0 - 25.0 12/06/2024 7:21 AM [facility] Sodium 140 136 - 145 meq/L 12/06/2024 7:21 AM [facility] Potassium 3.4(L) 3.5 - 5.1 meq/L 12/06/2024 7:21 AM [facility] Chloride 108 98 - 109 meq/L 12/06/2024 7:21 AM [facility] CO2 22 20 - 29 meq/L 12/06/2024 7:21 AM [facility] Anion Gap with K 13 6 - 20 meq/L 12/06/2024 7:21 AM [facility] Calcium 9.0 8.5 - 10.5 mg/dL 12/06/2024 7:21 AM [facility] Protein Total 7.6 6.0 - 8.3 g/dL 12/06/2024 7:21 AM [facility] Albumin 4.5 3.5 - 5.0 g/dL 12/06/2024 7:21 AM [facility] Alkaline Phosphatase 43 40 - 150 U/L 12/06/2024 7:21 AM [facility] AST - SGOT 21 <6 - 45 U/L 12/06/2024 7:21 AM [facility] ALT - SGPT 12 <6 - 55 U/L 12/06/2024 7:21 AM [facility] Bilirubin Total 0.9 0.3 - 1.2 mg/dL 12/06/2024 7:21 AM [facility] Age 34 Years 12/06/2024 7:21 AM [facility] eGFRcr() >90 >=60 mL/min/1.73 m2 12/06/2024 7:21 AM [facility] Fasting Unknown Yes, No, Unknown 12/06/2024 7:21 AM T [facility] Blood BLOOD SPECIMEN / Unknown 12/06/2024 6:59 AM CDT 12/06/2024 6:59 AM CDT us Nikole JHA LAB BLOOD Final Result [facility] [address] [place], [place] [address] * URINALYSIS REFLEX TO CULTURE (URINE DIP, REFLEX TO MICROSCOPIC, REFLEX TO CULTURE) (12/03/2024 3:21PM CDT) Color Urine Yellow Earline, Dark Yellow, Straw, Yellow, Colorless 12/03/2024 3:30 PM T [facility] Clarity Urine Clear Clear 12/03/2024 3:30 PM [facility] Glucose Urine Negative Negative 12/03/2024 3:30 PM T [facility] Bilirubin Urine Negative Negative 3:30 PM T [facility] Ketones Urine Negative Negative, 5 mg/dL, 10 mg/dL 12/03/2024 3:30 PM [facility] Specific [place] 1.010 1.002 - 1.030 12/03/2024 3:30 PM T [facility] Blood Urine Negative Negative 12/03/2024 3:30 PM T [facility] PH Urine 7.0 5.0, 5.5, 6.0, 6.5, 7.0, 7.5, 8.0 12/03/2024 3:30 PM [facility] Protein Urine Negative Negative 12/03/2024 3:30 PM T [facility] Urobilinogen < 2 mg/dL < 2 mg/dL 12/03/2024 3:30 PM T [facility] Nitrite Negative Negative 12/03/2024 3:30 PM T [facility] Leukocyte Esterase Urine Negative Negative 12/03/2024 3:30 PM CDT [facility] Urine URINE SPECIMEN OBTAINED BY CLEAN CATCH PROCEDURE / Unknown 12/03/2024 3:21 PM CDT 12/03/2024 3:26 PM CDT Narrative [facility] - 12/03/2024 3:30 PM CDT Microscopic exam not indicated Culture not performed - reflex criteria not met. Culture is only performed when the urine macroscopic color is reported as Bright [place], or when two or more of the following criteria are met: Positive Nitrite, Positive Leukocyte Esterase, WBC's >5 cells/hpf. Keyanna Loza GENERAL STUDIES PROGRAM CHAIR-[facility] LAB NON BLOOD Final Result [facility] [address] [place], [place] [id number] * LACTIC ACID REFLEX TO REPEAT (12/03/2024 2:15 PM CDT) Lactic Acid 1.4 0.5 - 2.2 mmol/L 12/03/2024 2:49 PM CDT [facility] Blood BLOOD SPECIMEN / Unknown 12/03/2024 2:15 PM CDT 12/03/2024 2:26 PM CDT Keyanna Loza GENERAL STUDIES PROGRAM CHAIR-[facility] LAB BLOOD Final Result [facility] [address] [place], [place] [id number] * (ABNORMAL) LAB ONLY-COMPLETE BLOOD COUNT WITH DIFFERENTIAL (12/03/2024 2:15 PM CDT) WBC 6.6 4.0 - 11.0 K/uL 12/03/2024 2:31 PM CDT [facility] RBC 2.74(L) 3.80 - 5.30 M/uL 12/03/2024 2:31 PM CDT [facility] Hemoglobin 8.6(L) 11.5 - 15.8 g/dL 12/03/2024 2:31 PM [facility] Hematocrit 25.4(L) 35.0 - 45.0 % 12/03/2024 2:31 PM [facility] MCV 92.7 80.0 - 98.0 fL 12/03/2024 2:31 PM [facility] MCH 31.4 25.5 - 34.0 pg 12/03/2024 2:31 PM [facility] MCHC 33.9 31.5 - 36.5 g/dL 12/03/2024 2:31 PM [facility] RDW-CV 16.9(H) 11.5 - 15.5 % 12/03/2024 2:31 PM [facility] RDW-SD 57.1(H) 35.5 - 50.0 fl 12/03/2024 2:31 PM [facility] Platelet Count 460(H) 140 - 400 K/uL 12/03/2024 2:31 PM [facility] MPV 8.6 8.5 - 12.0 fL 12/03/2024 2:31 PM [facility] Seg Neut Absolute 3.4 1.8 - 8.0 K/uL 12/03/2024 2:31 PM [facility] Lymphocytes Absolute 2.3 0.8 - 4.1 K/uL 12/03/2024 2:31 PM [facility] Monocytes Absolute 0.8 0.0 - 1.0 K/uL 12/03/2024 2:31 PM [facility] Eosinophils Absolute 0.0 0.0 - 0.7 K/uL 12/03/2024 2:31 PM [facility] Basophil Absolute 0.0 0.0 - 0.2 K/uL 12/03/2024 2:31 PM [facility] Immature Granulocyte Absolute <0.04 0.00 - 0.06 K/uL 12/03/2024 2:31 PM [facility] Neutrophils Abs. (Segs and Bands) 3,400 /uL 12/03/2024 2:31 PM CDT [facility] Neutrophils Percent 51.8 % 12/03/2024 2:31 PM CDT [facility] Lymphocytes Percent 34.5 % 12/03/2024 2:31 PM CDT [facility] Monocytes Percent 12.3 % 12/03/2024 2:31 PM CDT [facility] Immature Granulocyte Percent 0.2 % 12/03/2024 2:31 PM CDT [facility] Eosinophils Percent 0.6 % 12/03/2024 2:31 PM CDT [facility] Basophil Percent 0.6 % 12/04/19 2:31 PM CDT [facility] Blood BLOOD SPECIMEN / Unknown 12/03/2024 2:15 PM CDT 12/03/2024 2:26 PM CDT us Keyanna Loza GENERAL STUDIES PROGRAM CHAIR-BROADCAST DIRECTOR OPERATIONS LAB ONLY ORDERS Final Result [facility] [address] [place] [address] * PROCALCITONIN (12/03/2024 2:15 PM CDT) Procalcitonin 0.03 <0.07 ng/mL 12/03/2024 3:14 PM CDT [facility] Blood BLOOD SPECIMEN / Unknown 12/03/2024 2:15 PM CDT 12/03/2024 2:26 PM CDT Narrative [facility] - 12/03/2024 3:14 PM CDT Suspected Lower [...] accompaniment with other clinical data. Keyanna Loza [facility] BLO[facility] Final Result Performing Organization Address [facility]/ZIP Co de Phone Number [facility] [address] [place], [place] [address] * TYPE AND SCREEN (12/03/2024 2:15 PM CDT) Pathologist [facility] ABO Type B [facility] COVID-19 AG CARD 12/03/2024 3:08 PM CDT [facility] Rh Type Rh Positive [facility] COVID-19 AG CARD 12/03/2024 3:08 PM CDT [facility] Antibody Screen Negative Negative [facility] COVID-19 AG CARD 12/03/2024 3:08 PM CDT [facility] Expiration Date 12/06/2024 15:10 [facility] COVID-19 AG CARD 12/03/2024 3:08 PM CDT [facility] Blood BLOOD SPECIMEN / Unknown 12/03/2024 2:15 PM CDT 12/03/2024 2:26 PM CDT [facility]avez [facility] BLOOD Final Result Performing Organization Address [facility]/ZIP Co de Phone Number [facility] [address] [place] [address] * (ABNORMAL) RETIC COUNT (12/03/2024 2:15 PM CDT) RETICULOCYTE PERCENT 7.27(H) 0.50 - 2.30 % 12/03/2024 10:13 PM CDT [facility] Reticulocyte Absolute 0.197(H) 0.020 - 0.110 M/uL 12/03/2024 10:13 PM CDT [facility] Immature Retic Fraction 38.4(H) 3.0 - 16.0 % 12/03/2024 10:13 PM CDT [facility] Retic Hemoglobin 31.3 29.0 - 38.0 pg 12/03/2024 10:13 PM CDT [facility] Blood BLOOD SPECIMEN / Unknown 12/03/2024 2:15 PM CDT 12/03/2024 2:26 PM CDT Keyanna Loza GENERAL STUDIES PROGRAM CHAIR-[facility] LAB BLOOD Final Result [facility] [address] [place] [address] * C-REACTIVE PROTEIN (INFLAMMATION) (12/03/2024 2:15 PM CDT) CRP 1.0 <=5.0 mg/L 12/03/2024 2:49 PM CDT [facility] Blood BLOOD SPECIMEN / Unknown 12/03/2024 2:15 PM CDT 12/03/2024 2:26 PM CDT Keyanna Loza GENERAL STUDIES PROGRAM CHAIR-[facility] LAB BLOOD Final Result Performing Organization Address City/[facility]/ZIP Co de Phone Number [facility] [address] [place] [address] * HCG SCREEN (12/03/2024 2:15 PM CDT) Beta HCG Screen Negative [facility] COVID-19 AG CARD 12/03/2024 2:48 PM CDT [facility] Blood BLOOD SPECIMEN / Unknown 12/03/2024 2:15 PM CDT 12/03/2024 2:26 PM CDT Keyanna Mcdonaldottawa [facility] health centerbrendon GENERAL STUDIES PROGRAM CHAIR-[facility] LAB BLOOD Final Result [facility] [address] [place] [address] * MAGNESIUM (12/03/2024 2:15 PM CDT) Pathologist [facility] Magnesium 1.9 1.6 - 2.6 mg/dL 12/03/2024 3:02 PM CDT [facility] Blood BLOOD SPECIMEN / Unknown 12/03/2024 2:15 PM CDT 12/03/2024 2:26 PM CDT Keyanna Chavez [facility] Hospitalterryot[facility] centerb[facility] GENERAL STUDIES PROGRAM CHAIR-BROADCAST DIRECTOR OPERATIONS LAB BLOOD Final Result [facility] [address] [place] [address] * LIPASE (12/03/2024 2:15 PM CDT) Pathologist [facility] Lipase 23 8 - 78 U/L 12/03/2024 2:49 PM CDT [facility] Blood BLOOD SPECIMEN / Unknown 12/03/2024 2:15 PM CDT 12/03/2024 2:26 PM CDT Keyanna Chavez [facility] Hospitalalexsentara [facility] hospitalbrendon GENERAL STUDIES PROGRAM CHAIR-[facility] LAB BLOOD Final Result [facility] [address] [place] [address] * (ABNORMAL) COMPREHENSIVE METABOLIC PANEL (12/03/2024 2:15 PM CDT) Pathologist [facility] Glucose 87 70 - 99 mg/dL 12/03/2024 2:49 PM CDT [facility] BUN 4(L) 6 - 22 mg/dL 12/03/2024 2:49 PM CDT [facility] Creatinine 0.38(L) 0.55 - 1.02 mg/dL 12/03/2024 2:49 PM CDT [facility] BUN/Creatinine Ratio 10.5 10.0 - 25.0 12/03/2024 2:49 PM [facility] Sodium 138 136 - 145 meq/L 12/03/2024 2:49 PM [facility] Potassium 3.0(L) 3.5 - 5.1 meq/L 12/03/2024 2:49 PM [facility] Chloride 107 98 - 109 meq/L 12/03/2024 2:49 PM [facility] CO2 24 20 - 29 meq/L 12/03/2024 2:49 PM [facility] Anion Gap with K 10 6 - 20 meq/L 12/03/2024 2:49 PM [facility] Calcium 8.9 8.5 - 10.5 mg/dL 12/03/2024 2:49 PM [facility] Protein Total 7.5 6.0 - 8.3 g/dL 12/03/2024 2:49 PM [facility] Albumin 4.4 3.5 - 5.0 g/dL 12/03/2024 2:49 PM [facility] Alkaline Phosphatase 50 40 - 150 U/L 12/03/2024 2:49 PM [facility] AST - SGOT 21 <6 - 45 U/L 12/03/2024 2:49 PM [facility] ALT - SGPT 14 <6 - 55 U/L 12/03/2024 2:49 PM [facility] Bilirubin Total 0.9 0.3 - 1.2 mg/dL 12/03/2024 2:49 PM [facility] Age 34 Years 12/03/2024 2:49 PM [facility] eGFRcr() >90 >=60 mL/min/1.7 3m2 12/03/2024 2:49 PM [facility] Blood BLOOD SPECIMEN / Unknown 12/03/2024 2:15 PM CDT 12/03/2024 2:26 PM T us Keyanna Loza GENERAL STUDIES PROGRAM CHAIR-BROADCAST DIRECTOR OPERATIONS LAB BLOOD Final Result [facility] [address] [place], [place] [address] * (ABNORMAL) LAB ONLY-COMPLETE BLOOD COUNT WITH DIFFERENTIAL (11/06/2024 8:41 PM CDT) WBC 4.8 4.0 - 11.0 K/uL 11/06/2024 8:51 PM CDT [facility] RBC 3.32(L) 3.80 - 5.30 M/uL 11/06/2024 8:51 PM CDT [facility] Hemoglobin 10.3(L) 11.5 - 15.8 g/dL 11/06/2024 8:51 PM T [facility] Hematocrit 30.2(L) 35.0 - 45.0 % 11/06/2024 8:51 PM CDT [facility] MCV 91.0 80.0 - 98.0 fL 11/06/2024 8:51 PM CDT [facility] MCH 31.0 25.5 - 34.0 pg 11/06/2024 8:51 PM CDT [facility] MCHC 34.1 31.5 - 36.5 g/dL 11/06/2024 8:51 PM CDT [facility] RDW-CV 14.9 11.5 - 15.5 % 11/06/2024 8:51 PM CDT [facility] RDW-SD 49.8 35.5 - 50.0 fl 11/06/2024 8:51 PM CDT [facility] Platelet Count 240 140 - 400 K/uL 11/06/2024 8:51 PM T [facility] MPV 9.7 8.5 - 12.0 fL 11/06/2024 8:51 PM CDT [facility] Seg Neut Absolute 2.9 1.8 - 8.0 K/uL 11/06/2024 8:51 PM CDT [facility] Lymphocytes Absolute 1.6 0.8 - 4.1 K/uL 11/06/2024 8:51 PM CDT [facility] Monocytes Absolute 0.3 0.0 - 1.0 K/uL 11/06/2024 8:51 PM CDT [facility] Eosinophils Absolute 0.0 0.0 - 0.7 K/uL 11/06/2024 8:51 PM CDT [facility] Basophil Absolute 0.0 0.0 - 0.2 K/uL 11/06/2024 8:51 PM CDT [facility] Immature Granulocyte Absolute <0.04 0.00 - 0.06 K/uL 11/06/2024 8:51 PM CDT [facility] Neutrophils Abs. (Segs and Bands) 2,900 /uL 11/06/2024 8:51 PM CDT [facility] Neutrophils Percent 59.5 % 11/06/2024 8:51 PM CDT [facility] Lymphocytes Percent 33.3 % 11/06/2024 8:51 PM CDT [facility] Monocytes Percent 5.8 % 11/06/2024 8:51 PM CDT [facility] Immature Granulocyte Percent 0.4 % 11/06/2024 8:51 PM CDT [facility] Eosinophils Percent 0.6 % 11/06/2024 8:51 PM CDT [facility] Basophil Percent 0.4 % 11/07/19 8:51 PM CDT [facility] Blood BLOOD SPECIMEN / Unknown Venipuncture / Unknown 11/06/2024 8:41 PM CDT 11/06/2024 8:43 PM CDT us Ramon JHA LAB ONLY ORDERS Final Result [facility] [address] [place] [address] * C-REACTIVE PROTEIN (INFLAMMATION) (11/06/2024 8:41 PM CDT) CRP 0.9 <=5.0 mg/L 11/06/2024 9:04 PM T [facility] Blood BLOOD SPECIMEN / Unknown Venipuncture / Unknown 11/06/2024 8:41 PM CDT 11/06/2024 8:43 PM CDT us Ramon JHA LAB BLOOD Final Result [facility] [address] [place] [address] * (ABNORMAL) COMPREHENSIVE METABOLIC PANEL (11/06/2024 8:41 PM CDT) [facility] Glucose 99 70 - 99 mg/dL 11/06/2024 9:04 PM CDT [facility] BUN 6 6 - 22 mg/dL 11/06/2024 9:04 PM T [facility] Creatinine 0.54(L) 0.55 - 1.02 mg/dL 11/06/2024 9:04 PM T [facility] BUN/Creatinine Ratio 11.1 10.0 - 25.0 11/06/2024 9:04 PM T [facility] Sodium 139 136 - 145 meq/L 11/06/2024 9:04 PM T [facility] Potassium 3.2(L) 3.5 - 5.1 meq/L 11/06/2024 9:04 PM T [facility] Chloride 107 98 - 109 meq/L 11/06/2024 9:04 PM T [facility] CO2 22 20 - 29 meq/L 11/06/2024 9:04 PM T [facility] Anion Gap with K 13 6 - 20 meq/L 11/06/2024 9:04 PM T [facility] Calcium 9.2 8.5 - 10.5 mg/dL 11/06/2024 9:04 PM T [facility] Protein Total 7.5 6.0 - 8.3 g/dL 11/06/2024 9:04 PM T [facility] Albumin 4.5 3.5 - 5.0 g/dL 11/06/2024 9:04 PM CDT [facility] Alkaline Phosphatase 40 40 - 150 U/L 11/06/2024 9:04 PM CDT [facility] AST - SGOT 22 <6 - 45 U/L 11/06/2024 9:04 PM T [facility] ALT - SGPT 11 <6 - 55 U/L 11/06/2024 9:04 PM T [facility] Bilirubin Total 1.1 0.3 - 1.2 mg/dL 11/06/2024 9:04 PM CDT [facility] Age 34 Years 11/06/2024 9:04 PM T [facility] eGFRcr() >90 >=60 mL/min/1. 73m2 11/06/2024 9:04 PM CDT [facility] Blood BLOOD SPECIMEN / Unknown Venipuncture / Unknown 11/06/2024 8:41 PM CDT 11/06/2024 8:43 PM CDT us Ramon JHA LAB BLOOD Final Result [facility] [address] [place] [address] * (ABNORMAL) COMPLETE BLOOD COUNT NO DIFFERENTIAL (11/01/2024 7:00 AM CDT) WBC 5.0 4.0 - 11.0 K/uL 11/01/2024 7:03 AM [facility] RBC 3.16(L) 3.80 - 5.30 M/uL 11/01/2024 7:03 AM [facility] [place] Hemoglobin 10.0(L) 11.5 - 15.8 g/dL 11/01/2024 7:03 AM [facility] [place] Hematocrit 29.5(L) 35.0 - 45.0 % 11/01/2024 7:03 AM [facility] [place] MCV 93.4 80.0 - 98.0 fL 11/01/2024 7:03 AM [facility] [place] MCH 31.6 25.5 - 34.0 pg 11/01/2024 7:03 AM [facility] [place] MCHC 33.9 31.5 - 36.5 g/dL 11/01/2024 7:03 AM [facility] [place] RDW-CV 16.0(H) 11.5 - 15.5 % 11/01/2024 7:03 AM [facility] [place] RDW-SD 55.0(H) 35.5 - 50.0 fl 11/01/2024 7:03 AM [facility] [place] Platelet Count 290 140 - 400 K/uL 11/01/2024 7:03 AM [facility] [place] MPV 9.2 8.5 - 12.0 fL 11/01/2024 7:03 AM [facility] [place] Blood BLOOD SPECIMEN / Unknown Capillary / Unknown 11/01/2024 7:00 AM CDT 11/01/2024 7:00 AM CDT us Chucky Rendon MD LAB BLOOD Final Result [facility] [address] [place], [place] [address] * (ABNORMAL) BASIC METABOLIC PANEL (11/01/2024 7:00 AM CDT) Glucose 92 70 - 99 mg/dL 11/01/2024 7:28 AM [facility] [place] BUN 3(L) 6 - 22 mg/dL 11/01/2024 7:28 AM [facility] [place] Creatinine 0.39(L) 0.55 - 1.02 mg/dL 11/01/2024 7:28 AM [facility] [place] BUN/Creatinine Ratio 7.7(L) 10.0 - 25.0 11/01/2024 7:28 AM [facility] [place] Sodium 140 136 - 145 meq/L 11/01/2024 7:28 AM T [facility] Potassium 3.5 3.5 - 5.1 meq/L 11/01/2024 7:28 AM [facility] [place] Chloride 110(H) 98 - 109 meq/L 11/01/2024 7:28 AM [facility] [place] CO2 23 20 - 29 meq/L 11/01/2024 7:28 AM [facility] [place] Anion Gap with K 11 6 - 20 meq/L 11/01/2024 7:28 AM T [facility] Calcium 8.8 8.5 - 10.5 mg/dL 11/01/2024 7:28 AM T [facility] Age 34 Years 11/01/2024 7:28 AM [facility] [place] eGFRcr() >90 >=60 mL/min/1.73 m2 11/01/2024 7:28 AM [facility] [place] Fasting Yes Yes, No, Unknown 11/01/2024 7:28 AM [facility] [place] Blood BLOOD SPECIMEN / Unknown 11/01/2024 7:00 AM CDT 11/01/2024 7:00 AM T us Chucky Rendon MD LAB BLOOD Final Result [facility] [address] [place] [address] from Last 3 Months Advance Directives For more information, please contact: [phone] * Full Code (Latest Code Status on File) Date Activated Date Inactivated Comments 10/29/2024 11:41 PM 11/02/2024 7:58 PM Care Teams [employer] Relationship Specialty Start Date End Date Provider, No Attributed, [employer] [address] PCP - Attributed Provider 01/27/17 Lis Woody MD [address], [place] [id number] PCP - General Family Medicine 10/29/24
--- OUTSIDE RECORDS SUMMARY | 2025-02-01 03:47 | XMS_ITS | Encounter Summary ---
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 COUNT[address] INCLUDE [address] BEDS AT THE [facility], [place] [id number] C DIFF NAAT WITH REFLEX TO TOXIN A/B, CULTURE BACTERIAL, STOOL, SHIGA-LIKE TOXIN Social History Tobacco Use Types Packs/Day Years Used Date Smoking Tobacco: Light Smoker Alcohol Use Standard Drinks/Week Comments Yes 0 (1 standard drink = 0.6 oz pur e alcohol) [facility] Utilities Answer Date Recorded In the past 12 months has [employer], gas, oil, or water [employer] threatened to shut off services in your [...] any time in the past 12 m [facility], were you homeless or living in a [...] on file 

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
[2025-02-01 04:33] LABS: Hematocrit 26.1 % (37.0-47.0); Hemoglobin 8.8 g/dL (12.0-15.0); Immature Granulocyte Percent A 0.3 % (0-0.5); Immature Reticulocyte Fraction 35.7 % (3.0-15.9); Lymphocytes Absolute Auto 2.45 K/mm3 (0.9-3.2); Mean Corpuscular HGB Conc 33.7 g/dl (32-36); Mean Corpuscular Hemoglobin 30.6 pg (26-34); Mean Corpuscular Volume 90.6 fl (80-100); Nucleated Red Blood Cells Absolute Auto 0.060 K/mm3 (0.0-0.012); Nucleated Red Blood Cells Perc 0.8 % (0.0-0.2); Platelet Count Result 332 k/mm3 (150-375); Red Blood Count 2.88 M/mm3 (4.2-5.4); Reticulocyte Hemoglobin Conten 31.9 pg (28.2-36.6); Reticulocytes Absolute 0.21 10^6/uL (0.02-0.10); White Blood Count 7.2 K/mm3 (4.5-10.0)
[2025-02-01 04:41] LABS: Alanine Aminotransferase 18 U/L (6-35); Albumin Level 5.0 g/dL (3.5-5.1); Alkaline Phosphatase 55 U/L (38-126); Anion Gap 9 mmol/L (4-12); Aspartate Amino Transferase 32 U/L (14-36); Bilirubin,Total 1.4 mg/dL (0.2-1.3); Blood Urea Nitrogen 3 mg/dL (7-17); Calcium 10.1 mg/dL (8.4-10.2); Carbon Dioxide 24 mmol/L (22-30); Chloride 103 mmol/L (98-107); Estimated CRCL calculation 116 ml/min; Estimated Glomerular Filt Rate > 60; Glucose 90 mg/dL (65-110); Potassium 3.7 mmol/L (3.4-5.0); Sodium 136 mmol/L (137-145); Total Protein 8.6 g/dL (6.3-8.2)
[2025-02-01] MEDS: ONDANSETRON INJ 4 MG/2 ML VIAL IV PUSH (04:44)
[2025-02-01] MEDS: KETOROLAC 15 MG/ML VIAL (*BKC) IV PUSH (04:44)
[2025-02-01] MEDS: HYDROmorphone HCL INJ (*CRX) 2 MG/ML VIAL 1 MG IV PUSH (04:44)
[2025-02-01] MEDS: LACTATED RINGERS 500 ML 999 ML IV CONT ×2 (04:45→05:22)
[2025-02-01] MEDS: HYDROmorphone HCL INJ (*CRX) 2 MG/ML VIAL 1.5 MG IV PUSH ×4 (05:22→07:52)
[2025-02-01 05:32] LABS: BEDSIDEPREGUCG Negative (Negative)
[2025-02-01 05:48] LABS: Add Urine Microscopic? NO; Appearance Urine Clear (Clear); Glucose Urine UA Negative (Negative); Leukocyte Esterase Ur Negative LEU/UL (Negative); Nitrate Urine Negative (Negative); Specific Grav Ur 1.009 (1.001-1.035)
[2025-02-01 06:08] LABS: Cannabinoid Screen Urine Negative (Negative)
[2025-02-01 06:38] LABS: Magnesium 2.1 mg/dL (1.6-2.3)
[2025-02-01] MEDS: DICYCLOMINE HCL 10 MG CAPSULE PO (08:25)
== END 2025-02-01 08:34 | disposition home or self-care (01) ==
PROVIDERS: Emergency Provider Student in an Organized Health Care Education/Training Program
DX: D57.00 Hb-SS disease with crisis, unspecified (principal); D64.9 Anemia, unspecified; R93.5 Abnormal findings on diagnostic imaging of other abdominal regions, including retroperitoneum; R10.84 Generalized abdominal pain
CPT/HCPCS: 36415; 74177; 80053; 80307; 81003; 81025; 83735; 85025; 85046; 96361; 96374; 96375; 96376; 99284; A9270; J1171; J1885; J2405; J7120; Q9967